=== PATIENT | female | born 1955 | race Caucasian/White ===

== ENCOUNTER → 2018-02-20 10:57 | Outpatient (CLI) | payer BC, SELFPAY ==
--- NOTE | 2018-02-20 | DI.CT.S_ITS ---
PROCEDURE: CT ABDOMEN PELVIS W CON INDICATIONS: RIGHT LOWER ABDOMINAL PAIN FOR SEVERAL MONTHS TECHNIQUE: After the administration of oral and intravenous contrast, 5 mm thick sections acquired from the diaphragms to the symphysis. 5 mm thick coronal and sagittal reformats were performed. For radiation dose reduction, the following was used: automated exposure control, adjustment of mA and/or kV according to patient size. COMPARISON: None. FINDINGS: Image quality: Excellent. ABDOMEN: Lung bases: Lung bases are clear. Heart size is normal. Solid organs: Liver is normal in size and enhancement. Gallbladder is within normal limits. Biliary system is non-dilated. Pancreas enhances normally. Spleen is normal in size and enhancement. No adrenal nodules. Kidneys are normal in size and enhancement, without hydronephrosis. Peritoneum and bowel: Stomach, small bowel, and colon loops are normal in caliber and wall thickness. No free fluid or air. Appendix not seen. No evidence of appendicitis. Nodes and vessels: No retroperitoneal or mesenteric adenopathy. Aorta and inferior vena cava are normal in caliber. Miscellaneous: No ventral hernias. PELVIS: Genitourinary: Bladder wall thickness is normal. Miscellaneous: No inguinal hernias or adenopathy. Bones: No suspicious bony lesions. No vertebral body compression fractures. IMPRESSION: 1. No acute process. 2. Appendix not seen. No evidence of appendicitis. Dictated by: Vahid Lopez M.D. on 02/20/2018 at 13:13 Approved by: Vahid Lopez M.D. on 02/20/2018 at 13:15
== END ==
PROVIDERS: PCP Internal Medicine; Visit Provider Internal Medicine
DX: R10.31 Right lower quadrant pain (principal)
CPT/HCPCS: 74177; Q9967

== ENCOUNTER → 2018-08-14 12:07 | Outpatient (CLI) | payer MEDICARE, OTHER, SELFPAY ==
[2018-08-14 13:54] LABS: BUN Creatinine Ratio 18.2 (6-22); Blood Urea Nitrogen 20 mg/dL (7-17); Estimated Glomerular Filt Rate 49.8 mL/min (>60)
== END ==
PROVIDERS: PCP Internal Medicine; Visit Provider Internal Medicine
DX: R59.1 Generalized enlarged lymph nodes (principal)
CPT/HCPCS: 36415; 82565; 84520

== ENCOUNTER → 2018-08-15 11:40 | Outpatient (CLI) | payer MEDICARE, OTHER, SELFPAY ==
--- NOTE | 2018-08-15 11:46 | DI.CT.S_ITS ---
PROCEDURE: CT SOFT TISSUE NECK W CON INDICATIONS: Generalized enlarged lymph nodes TECHNIQUE: After the administration of intravenous contrast, 3.0 mm axial sections acquired from the sella to the aortic arch. Additional oblique axial 3.0 mm sections acquired through the pharynx. 3 mm thick coronal and sagittal reformats were generated. For radiation dose reduction, the following was used: automated exposure control. COMPARISON: None. FINDINGS: Image quality: Excellent. Lymph nodes: No enlarged lymph nodes seen throughout the neck. Small scattered nodes are seen within the fatty soft tissues of the neck bilaterally, but not centrally necrotic nodes are hyperenhancing nodes are found. Vessels: Visualized vasculature appears patent. Neck spaces: The oropharynx, nasopharynx, and pharynx demonstrate no mucosal lesions. The vocal cords, false vocal cords, pyriform sinuses, epiglottis, vallecula, and tongue base all appear normal. Extramucosal spaces appear unremarkable. Glands: The parotid and submandibular glands appear normal. Thyroid gland appears normal. Miscellaneous: Visualized brain and orbits appear normal. Lung apices appear clear. Superficial soft tissues appear normal. Bones: No suspicious bony lesions. Visualized sinuses and mastoids appear unremarkable. IMPRESSION: The lymph nodes present through the neck do not appear pathologically enlarged. The no hyperenhancing or centrally necrotic lymph nodes are found. No mucosal lesion is identified. By this examination underlying neoplasm would not be suspected. Dictated by: Renny Peralta M.D. on 08/15/2018 at 12:24 Approved by: Renny Peralta M.D. on 08/15/2018 at 12:27
== END ==
PROVIDERS: PCP Internal Medicine; Visit Provider Physician Assistant
DX: R59.1 Generalized enlarged lymph nodes (principal)
CPT/HCPCS: 70491; Q9967

== ENCOUNTER → 2019-02-09 07:08 | Outpatient (CLI) | payer MEDICARE, OTHER, SELFPAY ==
[2019-02-09 08:29] LABS: BUN Creatinine Ratio 17.8 (6-22); Blood Urea Nitrogen 16 mg/dL (7-17); Carbon Dioxide 25 mmol/L (22-32); Chloride 106 mmol/L (98-107); Cholesterol 171 mg/dL (140-199); Estimated Glomerular Filt Rate > 60.0 mL/min (>60); Glucose 91 mg/dL (80-110); HDL Cholesterol 53 mg/dL (40-60); HEMOLYSIS < 15 (0-50); LDL Cholesterol Calculated 104 mg/dL (<100); Sodium 138 mmol/L (137-145); Triglycerides 71 mg/dL (35-150)
== END ==
PROVIDERS: PCP Internal Medicine; Visit Provider Internal Medicine
DX: Z13.220 Encounter for screening for lipoid disorders (principal); Z13.1 Encounter for screening for diabetes mellitus
CPT/HCPCS: 36415; 80048; 80061

== ENCOUNTER → 2019-02-23 14:20 | Outpatient (CLI) | payer MEDICARE, OTHER, SELFPAY ==
--- NOTE | 2019-02-23 | DI.MG.S_ITS ---
BILATERAL DIGITAL SCREENING MAMMOGRAM 3D/2D WITH CAD: 02/23/2019 CLINICAL: Routine screening. Family history of breast cancer. Comparison is made to exams dated: 04/28/2017 mammogram, 03/25/2016 mammogram - [facility], 09/27/2013 mammogram, 08/23/2012 mammogram, and 07/12/2011 mammogram - [facility]. The tissue of both breasts is extremely dense, which lowers the sensitivity of mammography. Current study was also evaluated with a Computer Aided Detection (CAD) system. No significant masses, calcifications, or other findings are seen in either breast. There has been no significant interval change. IMPRESSION: NEGATIVE There is no mammographic evidence of malignancy. A 1 year screening mammogram is recommended. This exam was interpreted at Station ID: [id number]. NOTE: For mammograms, a report in lay terms will be sent to the patient. Approximately 15% of breast malignancies will not be visualized mammographically. In the management of a palpable breast mass, a negative mammogram must not discourage biopsy of a clinically suspicious lesion. Electronically Signed By: Fidencio durbin/matty:02/23/2019 17:43:55 letter sent: Normal Exam ACR BI-RADS Category 1: Negative 3341F
--- NOTE | 2019-02-23 | DI.RAD.S_ITS ---
PROCEDURE: XR HAND RT MIN 3V INDICATIONS: BILATERAL HAND AND WRIST PAIN TECHNIQUE: 3 views of the hand(s) acquired. COMPARISON: None. FINDINGS: Bones: No fractures or dislocations. Carpal bones are normally aligned. No suspicious bony lesions. Mild first CMC joint and triscaphe joint osteoarthritis. Mild interphalangeal joint osteoarthritis. Mild first, second and third metacarpal-phalangeal osteoarthritis. Soft tissues: No suspicious soft tissue calcifications. IMPRESSION: Mild osteoarthritis. Dictated by: Tamara Hernandez MD, PhD on 02/23/2019 at 16:47 Approved by: Tamara Hernandez MD, PhD on 02/23/2019 at 16:48
--- NOTE | 2019-02-23 | DI.RAD.S_ITS ---
PROCEDURE: XR WRIST RT MIN 3V INDICATIONS: BILATERAL HAND AND WRIST PAIN TECHNIQUE: 4 views of the wrist were acquired. COMPARISON: None. FINDINGS: Bones: No fractures or dislocations. No suspicious bony lesions. Mild first CMC joint and triscaphe joint osteoarthritis. Scaphoid view: Scaphoid is intact. Soft tissues: No suspicious soft tissue calcifications. IMPRESSION: Mild osteoarthritis. Dictated by: Tamara Hernandez MD, PhD on 02/23/2019 at 16:49 Approved by: Tamara Hernandez MD, PhD on 02/23/2019 at 16:50
--- NOTE | 2019-02-23 | DI.RAD.S_ITS ---
PROCEDURE: XR WRIST LT MIN 3V INDICATIONS: BILATERAL HAND AND WRIST PAIN TECHNIQUE: 4 views of the wrist were acquired. COMPARISON: None. FINDINGS: Bones: No fractures or dislocations. No suspicious bony lesions. The moderate first CMC and triscaphe joint osteoarthritis. Scaphoid view: Scaphoid is intact. Soft tissues: No suspicious soft tissue calcifications. IMPRESSION: Moderate osteoarthritis. Dictated by: Tamara Hernandez MD, PhD on 02/23/2019 at 16:48 Approved by: Tamara Hernandez MD, PhD on 02/23/2019 at 16:49
--- NOTE | 2019-02-23 | DI.RAD.S_ITS ---
PROCEDURE: XR HAND LT MIN 3V INDICATIONS: BILATERAL HAND AND WRIST PAIN TECHNIQUE: 3 views of the hand(s) acquired. COMPARISON: None. FINDINGS: Bones: No fractures or dislocations. Carpal bones are normally aligned. No suspicious bony lesions. Moderate first CMC joint and triscaphe joint osteoarthritis. Mild interphalangeal and osteophytosis. Soft tissues: No suspicious soft tissue calcifications. IMPRESSION: Osteoarthritis. Dictated by: Tamara Hernandez MD, PhD on 02/23/2019 at 16:46 Approved by: Tamara Hernandez MD, PhD on 02/23/2019 at 16:47
== END ==
PROVIDERS: PCP Internal Medicine; Visit Provider Internal Medicine
DX: Z12.31 Encounter for screening mammogram for malignant neoplasm of breast (principal); Z80.3 Family history of malignant neoplasm of breast; M79.642 Pain in left hand; M79.641 Pain in right hand; M25.532 Pain in left wrist; M25.531 Pain in right wrist; M19.042 Primary osteoarthritis, left hand; M19.041 Primary osteoarthritis, right hand; M18.0 Bilateral primary osteoarthritis of first carpometacarpal joints; M19.032 Primary osteoarthritis, left wrist; M19.031 Primary osteoarthritis, right wrist
CPT/HCPCS: 73110; 73130; 77063; 77067; 77080

== ENCOUNTER → 2020-04-07 08:07 | Outpatient (CLI) | payer MEDICARE, OTHER, SELFPAY ==
[2020-04-07 09:13] LABS: Add Manual Diff / Slide Review NO; Basophils Absolute Auto 100 /uL (0-100); Basophils Percent Auto 2.8 % (0-2); Eosinophils Absolute Auto 300 /uL (0-450); Eosinophils Percent Auto 5.7 % (2-4); Hematocrit 40.3 % (36-46); Hemoglobin 13.5 g/dL (12.0-16.0); Lymphocytes Absolute Auto 2000 /uL (1100-4500); Mean Corpuscular HGB Conc 33.6 % (30-36); Mean Corpuscular Hemoglobin 31.8 PG (26-34); Mean Corpuscular Volume 94.7 fL (80-100); Monocytes Absolute Auto 400 /uL (0-900); Monocytes Percent Auto 8.2 % (3-14); Neutrophils Absolute Auto 1800 /uL (1500-7000); Neutrophils Percent Auto 39.3 % (50-75); Platelet Count 209 X10^3/uL (150-400); Red Blood Cell Count 4.26 X10^6/uL (4.0-5.2); White Blood Cell Count 4.6 X10^3/uL (4.5-11.0)
[2020-04-07 09:31] LABS: Alanine Aminotransferase 25 IU/L (<35); Albumin Globulin Ratio 1.3 (1.0-2.8); Alkaline Phosphatase 53 U/L (38-126); Aspartate Aminotransferase 34 IU/L (14-36); Bilirubin Total 0.6 mg/dL (0.2-1.3); Blood Urea Nitrogen 16 mg/dL (7-17); Calcium 9.3 mg/dL (8.4-10.2); Carbon Dioxide 26 mmol/L (22-32); Chloride 106 mmol/L (98-107); Estimated Glomerular Filt Rate 55.5 mL/min (>60); Globulin 3.2 g/dL (1.7-4.1); Glucose 134 mg/dL (80-110); HEMOLYSIS < 15 (0-50); Potassium 3.9 mmol/L (3.4-5.1); Sodium 135 mmol/L (137-145); Total Protein 7.2 g/dL (6.3-8.2)
== END ==
PROVIDERS: PCP Physician Assistant; Referring Provider Physician Assistant; Visit Provider Physician Assistant
DX: N95.2 Postmenopausal atrophic vaginitis (principal); M81.0 Age-related osteoporosis without current pathological fracture; Z12.31 Encounter for screening mammogram for malignant neoplasm of breast
CPT/HCPCS: 36415; 80053; 85025

== ENCOUNTER → 2020-06-06 14:27 | Outpatient (CLI) | payer MEDICARE, SELFPAY ==
--- NOTE | 2020-06-06 14:31 | DI.MG.S_ITS ---
BILATERAL DIGITAL SCREENING MAMMOGRAM 3D/2D WITH CAD: 06/06/2020 CLINICAL: Routine screening. Family history of breast cancer. Comparison is made to exams dated: 02/23/2019 mammogram, 04/28/2017 mammogram, and 03/25/2016 mammogram - [facility]. The tissue of both breasts is heterogeneously dense. This may lower the sensitivity of mammography. Current study was also evaluated with a Computer Aided Detection (CAD) system. No significant masses, calcifications, or other findings are seen in either breast. There has been no significant interval change. IMPRESSION: NEGATIVE There is no mammographic evidence of malignancy. A 1 year screening mammogram is recommended. This exam was interpreted at Station ID: [id number]. NOTE: For mammograms, a report in lay terms will be sent to the patient. Approximately 15% of breast malignancies will not be visualized mammographically. In the management of a palpable breast mass, a negative mammogram must not discourage biopsy of a clinically suspicious lesion. Electronically Signed By: Ramsey Penny M.D., jr/matty:06/06/2020 15:58:51 letter sent: Normal Exam ACR BI-RADS Category 1: Negative 3341F
== END ==
PROVIDERS: PCP Physician Assistant; Referring Provider Physician Assistant; Visit Provider Physician Assistant
DX: Z12.31 Encounter for screening mammogram for malignant neoplasm of breast (principal); Z80.3 Family history of malignant neoplasm of breast
CPT/HCPCS: 77063; 77067

== ENCOUNTER → 2020-07-18 08:11 | Outpatient (CLI) | payer MEDICARE, SELFPAY ==
[2020-07-18] MEDS: COVID-19 VACC, Ad26(JANSSEN)/PF 0.5 ML IM (08:23)
== END ==
PROVIDERS: PCP Physician Assistant; Visit Provider Internal Medicine
DX: Z23 Encounter for immunization (principal)
CPT/HCPCS: 0031A; 91303

== ENCOUNTER 2020-09-20 17:01 | Emergency (ER) | payer MEDICARE, SELFPAY ==
[2020-09-20 17:05] VITALS: BP 172/81; PULSE 78; RESP 16; TEMP 36.7; O2SAT 99; BMI 20.5
--- NOTE | 2020-09-20 17:07 | DI.RAD.S_ITS ---
PROCEDURE: XR TOE LT MIN 2V INDICATIONS: pain and swelling left big toe, luggage dropped on toe thurs TECHNIQUE: Frontal view of the foot along with 2 dedicated views of the great toe were performed. COMPARISON: None. FINDINGS: Bones: No fractures or dislocations. No suspicious bony lesions. Soft tissues: No suspicious soft tissue densities. IMPRESSION: No acute osseous abnormality. Dictated by: Wayne Dorsey D.O. on 09/20/2020 at 16:27 Approved by: Wayne Dorsey D.O. on 09/20/2020 at 16:28
--- NOTE | 2020-09-20 18:53 | ED_ITS ---
HPI - Extremity Injury (Lower) General Chief Complaint: Extremity Injury, Lower Stated Complaint: Possible Broken Left Big Toe Time Seen by Provider: 09/20/20 17:07 Source: patient Mode of arrival: Ambulatory Limitations: no limitations History of Present Illness HPI Narrative: Patient is a 65-year-old female here for evaluation of an injury that she sustained approximately 24 hours ago to her left great toe. She states that she had a piece of luggage drop on her toe. Since that time she has had quite a bit of discomfort with walking. Related Data Allergies Allergy/AdvReac Type Severity Reaction Status Date / Time No Known Drug Allergies Allergy Verified 09/20/20 17:07 Review of Systems Constitutional Constitutional: Reports system reviewed and no additional complaints, except as documented Musculoskeletal Comments: Left great toe pain Integumentary/Breasts Comments: Bruising around the left great toe Neurologic Neurologic: Denies sensory deficit Hematologic/Lymphatic On Anticoagulants: No Patient History Medical History Healthy adult Social History Smoking Status: Never smoker Smoking Status: Never smoker alcohol intake frequency: 0-2 drinks per day Substance Use Type: does not use Exam Initial Vital Signs Initial Vital Signs: Vital Signs Temperature 98.0 F 09/20/20 17:05 Pulse Rate 78 09/20/20 17:05 Respiratory Rate 16 09/20/20 17:05 Blood Pressure 172/81 H 09/20/20 17:05 Pulse Oximetry 99 09/20/20 17:05 Const General: cooperative Limitations: mental status not altered Resp Effort & Inspection: normal respiratory effort Cardio Pulses: dorsalis pedis present on the left Skin Other: Bruising around the MTP joint to the left great toe. Neuro General: patient alert and patient awake Cognition: normal cognition Speech: speech normal Extrem General: capillary refill normal Psych Appearance: grossly normal and well kempt Procedures Orthopedic Splinting/Casting Injury #1: Side: left Lower Extremity Injury Location: toe Lower Extremity Immobilizer: post-op shoe Post splinting neuro exam: no change Post splinting vascular exam: no change Placed by: Nursing Course Orders Ordered: ED Orders 09/20/20 17:07 XR toe LT min 2V Stat Vital Signs Vital signs: Vital Signs - 8 hr 09/20/20 17:05 09/20/20 19:07 Temperature 98.0 F Pulse Rate 78 65 Respiratory Rate 16 Blood Pressure 172/81 H 165/74 H Pulse Oximetry 99 99 MDM - Extremity Injury (Lower) Imaging Data Extremity x-ray #1: Radiologist's Impression: [address] [id number] ReportSigned Patient: Kayla Centeno AMR#: [id number]: 4Acct:[id number]/Sex: 65 / FDate of Service: 09/20/20Loc: EDAccession Number: [id number] Procedure: XR toe LT min 2V Ordering Provider: Speedy Lyons D.O. PROCEDURE: XR TOE LT MIN 2V INDICATIONS: pain and swelling left big toe, luggage dropped on toe thurs TECHNIQUE: Frontal view of the foot along with 2 dedicated views of the great toe were performed. COMPARISON: None. FINDINGS: Bones: No fractures or dislocations. No suspicious bony lesions. Soft tissues: No suspicious soft tissue densities. IMPRESSION: No acute osseous abnormality. Dictated by: Wayne Dorsey D.O. on 09/20/2020 at 16:27 Approved by: Wayne Dorsey D.O. on 09/20/2020 at 16:28 MDM Narrative Medical decision making narrative: No fractures were noted on the x-rays. She is neurovascularly intact. Will place in a hard sole shoe for her comfort. No further workup needed in the emergency department. She was given return precautions and follow-up instructions. She expressed understanding and agreement. Discharge Plan Departure Patient Disposition: Home Clinical Impression: Contusion of toe of left foot Instructions: DI for Contusion Activity Restrictions/Additional Instructions: There were no fractures noted on the x-rays. The orthopedic shoe is for your comfort. May help with walking however once you start to feel better you can transition back into your regular issues. Recommend 400-600 mg of Motrin/ibuprofen 3 times a day for any discomfort. You can also use ice. Con tact your primary provider for follow-up. Referrals: Elisabeth Calle PA-C [Primary Care Provider] -
[2020-09-20 19:07] VITALS: BP 165/74; PULSE 65; O2SAT 99
== END 2020-09-20 19:08 | disposition home or self-care (01) ==
PROVIDERS: Emergency Provider Emergency Medicine; PCP Physician Assistant
DX: S90.112A Contusion of left great toe without damage to nail, initial encounter (principal); W22.8XXA Striking against or struck by other objects, initial encounter
CPT/HCPCS: 73660; 99283

== ENCOUNTER 2020-11-23 07:57 | Emergency (ER) | payer MEDICARE, SELFPAY ==
--- NOTE | 2020-11-23 08:05 | DI.RAD.S_ITS ---
PROCEDURE: XR SHOULDER RT MIN 2V INDICATIONS: pain with movement after injury TECHNIQUE: 3 views of the shoulder were acquired. COMPARISON: None. FINDINGS: Bones: No fractures or dislocations. No suspicious bony lesions. Visualized ribs appear intact. Soft tissues: There is amorphous soft tissue calcification associated with the supraspinatus tendon IMPRESSION: Supraspinatus tendon calcification may reflect calcific tendinitis. Dictated by: Wil Baldwin M.D. on 11/23/2020 at 7:46 Approved by: Wil Baldwin M.D. on 11/23/2020 at 7:50
[2020-11-23 08:07] VITALS: BP 183/85; PULSE 68; RESP 16; TEMP 36.6; O2SAT 99; BMI 21.4
--- NOTE | 2020-11-23 08:07 | ED.GENADULT ---
HPI - General Adult General Chief complaint: Extremity Injury, Upper Stated complaint: Right shoulder injury Time Seen by Provider: 11/23/20 08:01 Source: patient Mode of arrival: Ambulatory History of Present Illness HPI narrative: 65-year-old female here for evaluation of a right shoulder injury. She states that several days ago she injured her shoulder while throwing a rope while on a boat. Since that time she has had quite a bit of discomfort in his for early been unable to move her shoulder without extreme pain. She has had shoulder problems in the past but this is worse. Was not been evaluated for the symptoms. She did not fall. Related Data Previous Rx's Medication Instructions Recorded hydrocodone 5 mg-acetaminophen 325 1 tab PO Q8H PRN #10 tab 11/23/20 mg tablet Allergies Allergy/AdvReac Type Severity Reaction Status Date / Time No Known Drug Allergies Allergy Verified 09/20/20 17:07 Review of Systems Constitutional Constitutional: Reports system reviewed and no additional complaints, except as documented Cardiovascular Cardiovascular: Reports system reviewed and no additional complaints, except as documented Respiratory Respiratory: Reports system reviewed and no additional complaints, except as documented Gastrointestinal Gastrointestinal: Reports system reviewed and no additional complaints, except as documented Musculoskeletal Musculoskeletal: Reports as per HPI Integumentary/Breasts Skin/Breast: Reports system reviewed and no additional complaints, except as documented Neurologic Neurologic: Reports system reviewed and no additional complaints, except as documented Hematologic/Lymphatic On Anticoagulants: No Patient History Medical History Healthy adult Social History Smoking Status: Never smoker Smoking Status: Never smoker alcohol intake frequency: 0-2 drinks per day Substance Use Type: does not use Exam Initial Vital Signs Initial Vital Signs: Vital Signs Temperature 97.8 F 11/23/20 08:07 Pulse Rate 68 11/23/20 08:07 Respiratory Rate 16 11/23/20 08:07 Blood Pressure 183/85 H 11/23/20 08:07 Pulse Oximetry 99 11/23/20 08:07 Const General: cooperative and comfortable HENMT Head: normal to inspection and normocephalic Resp Effort & Inspection: normal respiratory effort Cardio Pulses: radial pulses present on the right Skin General: no rashes or lesions noted Neuro Sensory Exam: no sensory deficits noted Extrem General: capillary refill normal Other: Her right wrist and right elbow are unremarkable. She does have tenderness to palpation over the AC joint and over the lateral aspect of the right shoulder. She is unable to abduct her shoulder. Can forward flex but is limited secondary to pain. Does not have tenderness over the biceps tendon. Does not have tenderness over the insertion of the deltoid. Minimal posterior shoulder tenderness Course Orders Ordered: ED Orders 11/23/20 08:05 XR shoulder RT min 2V Stat Vital Signs Vital signs: Vital Signs - 8 hr 11/23/20 08:07 Temperature 97.8 F Pulse Rate 68 Respiratory Rate 16 Blood Pressure 183/85 H Pulse Oximetry 99 Medical Decision Making Imaging Data Extremity x-ray #1: Radiologist's Impression: [address] [id number] ReportSigned Patient: Kayla Centeno AMR#: [id number]: 4Acct:[id number]/Sex: 65 / FDate of Service: 11/23/20Loc: EDAccession Number: [id number] Procedure: XR shoulder RT min 2V Ordering Provider: Shadi Plascencia D.O. PROCEDURE: XR SHOULDER RT MIN 2V INDICATIONS: pain with movement after injury TECHNIQUE: 3 views of the shoulder were acquired. COMPARISON: None. FINDINGS: Bones: No fractures or dislocations. No suspicious bony lesions. Visualized ribs appear intact. Soft tissues: There is amorphous soft tissue calcification associated with the supraspinatus tendon IMPRESSION: Supraspinatus tendon calcification may reflect calcific tendinitis. Dictated by: Wil Baldwin M.D. on 11/23/2020 at 7:46 Approved by: Wil Baldwin M.D. on 11/23/2020 at 7:50 [facility] Narrative Additional Information: No fractures or dislocations noted on the x-rays. She does have calcific tendon which very well could be causing her discomfort. We did discuss use of anti-inflammatories and other conservative measures. We will avoid putting her into a sling to avoid a frozen shoulder. She was given return precautions follow-up instructions. She expressed understanding and agreement. Discharge Plan Departure Patient Disposition: Home Clinical Impression: Acute shoulder pain, Calcific tendinitis Instructions: DI for Shoulder Tendinopathy Activity Restrictions/Additional Instructions: I recommend that you continue with an anti-inflammatory. He can also add Tylenol on top of this. You could also use ice. I do recommend that you try to keep your shoulder is mobile as possible. Contact your primary doctor to discuss further evaluation and treatment if necessary. Prescriptions: New hydrocodone-acetaminophen 5-325 mg tablet 1 tab PO Q8H PRN (Reason: pain) Qty: 10 RF: 0 Referrals: Elisabeth Calle PA-C [Primary Care Provider] -
== END 2020-11-23 09:35 | disposition home or self-care (01) ==
PROVIDERS: Emergency Provider Emergency Medicine; PCP Physician Assistant
DX: M25.511 Pain in right shoulder (principal); M75.31 Calcific tendinitis of right shoulder; X50.1XXA Overexertion from prolonged static or awkward postures, initial encounter
CPT/HCPCS: 73030; 99283

== ENCOUNTER → 2021-01-09 12:13 | Outpatient (CLI) | payer MEDICARE, SELFPAY ==
[2021-01-09 12:53] LABS: COVID19 -Nasal RAPID Negative (Negative)
== END ==
PROVIDERS: PCP Physician Assistant; Referring Provider Nurse Practitioner; Visit Provider Nurse Practitioner
DX: R09.89 Other specified symptoms and signs involving the circulatory and respiratory systems (principal); Z20.822 Contact with and (suspected) exposure to COVID-19; R51.9 Headache, unspecified
CPT/HCPCS: 87635

== ENCOUNTER → 2021-03-26 11:09 | Outpatient (CLI) | payer MEDICARE, SELFPAY | PROVIDERS: PCP Physician Assistant; Referring Provider Physician Assistant; Visit Provider Physician Assistant | DX: M81.0 Age-related osteoporosis without current pathological fracture (principal); Z82.62 Family history of osteoporosis; Z78.0 Asymptomatic menopausal state | CPT/HCPCS: 77080 ==

== ENCOUNTER → 2021-08-04 07:56 | Outpatient (CLI) | payer MEDICARE, SELFPAY ==
--- NOTE | 2021-08-04 | DI.MG.S_ITS ---
BILATERAL DIGITAL SCREENING MAMMOGRAM 3D/2D WITH CAD: 08/04/2021 CLINICAL: Routine screening. Comparison is made to exams dated: 06/06/2020 mammogram, 02/23/2019 mammogram, 04/28/2017 mammogram, and 03/25/2016 mammogram - [facility]. The tissue of both breasts is heterogeneously dense. This may lower the sensitivity of mammography. Current study was also evaluated with a Computer Aided Detection (CAD) system. There is an irregular asymmetry in the left breast posterior depth inferior region seen on the mediolateral oblique view only. This is more prominent. No other significant masses, calcifications, or other findings are seen in either breast. IMPRESSION: INCOMPLETE: NEEDS ADDITIONAL IMAGING EVALUATION The irregular asymmetry in the left breast is indeterminate. Additional views with possible ultrasound are recommended. This exam was interpreted at Station ID: [id number]. NOTE: For mammograms, a report in lay terms will be sent to the patient. Approximately 15% of breast malignancies will not be visualized mammographically. In the management of a palpable breast mass, a negative mammogram must not discourage biopsy of a clinically suspicious lesion. Electronically Signed By: Fidencio Clements M.D. slc/:08/04/2021 12:09:35 letter sent: Additional Imaging Needed ACR BI-RADS Category 0: Incomplete 3340F
== END ==
PROVIDERS: PCP Internal Medicine; Referring Provider Internal Medicine; Visit Provider Internal Medicine
DX: Z12.31 Encounter for screening mammogram for malignant neoplasm of breast (principal)
CPT/HCPCS: 77063; 77067

== ENCOUNTER → 2021-09-15 08:42 | Outpatient (CLI) | payer MEDICARE, SELFPAY ==
--- NOTE | 2021-09-15 | DI.US.S_ITS ---
LIMITED ULTRASOUND OF LEFT BREAST: 09/15/2021 CLINICAL: Additional evaluation requested from last mammogram study. Comparison is made to exams dated: 09/15/2021 mammogram and 08/04/2021 mammogram - [facility]. Real-time ultrasound of the left breast 6-9 o'clock region was performed. Cao scale images of the real-time examination were reviewed. No significant abnormalities were seen sonographically in the left breast. Specifically, no finding to correspond to the patient's screening mammography abnormality. IMPRESSION: NEGATIVE There is no sonographic correlate to the patient's left breast abnormality and no evidence of malignancy. Return to annual mammogram screening schedule is recommended. Findings and recommendations were conveyed to the patient at time of exam. This exam was interpreted at Station ID: [id number]. Electronically Signed By: Yasemin murphy/:09/15/2021 15:27:01 letter sent: Normal Exam Ultrasound BI-RADS: 1 Negative
--- NOTE | 2021-09-15 | DI.MG.S_ITS ---
UNILATERAL LEFT DIGITAL DIAGNOSTIC MAMMOGRAM 3D/2D WITH ADDITIONAL VIEWS: 09/15/2021 CLINICAL: Additional evaluation requested from prior study. Comparison is made to exams dated: 08/04/2021 mammogram, 02/23/2019 mammogram, and 06/06/2020 mammogram - [facility]. The tissue of left breast is heterogeneously dense. This may lower the sensitivity of mammography. With focal spot compression, and additional views, the abnormality seen on screening mammography in the left breast in the lower inner quadrant resolves. No significant masses, calcifications, or other findings are seen in the breast. IMPRESSION: INCOMPLETE: NEEDS ADDITIONAL IMAGING EVALUATION Resolution of left breast screening mammography abnormality with additional views. Ultrasound evaluation to confirm resolution is recommended and was performed immediately following this exam. This exam was interpreted at Station ID: [id number]. NOTE: For mammograms, a report in lay terms will be sent to the patient. Approximately 15% of breast malignancies will not be visualized mammographically. In the management of a palpable breast mass, a negative mammogram must not discourage biopsy of a clinically suspicious lesion. Electronically Signed By: Yasemin murphy/:09/15/2021 09:11:57 ACR BI-RADS Category 0: Incomplete 3340F
== END ==
PROVIDERS: PCP Internal Medicine; Referring Provider Internal Medicine; Visit Provider Internal Medicine
DX: R92.8 Other abnormal and inconclusive findings on diagnostic imaging of breast (principal)
CPT/HCPCS: 76642; 77065; G0279

== ENCOUNTER → 2021-12-25 13:07 | Outpatient (CLI) | payer MEDICARE, SELFPAY ==
[2021-12-25 14:34] LABS: Hematocrit 39.4 % (36-46); Hemoglobin 13.6 g/dL (12.0-16.0); Mean Corpuscular HGB Conc 34.5 % (30-36); Mean Corpuscular Volume 92.7 fL (80-100); Platelet Count 224 X10^3/uL (150-400); Red Blood Cell Count 4.25 X10^6/uL (4.0-5.2); Red Cell Distribution Width 12.9 % (11.6-14.8); White Blood Cell Count 6.5 X10^3/uL (4.5-11.0)
[2021-12-25 16:53] LABS: Alanine Aminotransferase 18 IU/L (<35); Albumin 4.1 g/dL (3.5-5.0); Albumin Globulin Ratio 1.4 (1.0-2.8); Alkaline Phosphatase 57 U/L (38-126); Aspartate Aminotransferase 28 IU/L (14-36); BUN Creatinine Ratio 20.2 (6-22); Bilirubin Total 0.3 mg/dL (0.2-1.3); Blood Urea Nitrogen 24 mg/dL (7-17); Calcium 8.8 mg/dL (8.4-10.2); Carbon Dioxide 23 mmol/L (22-32); Chloride 105 mmol/L (98-107); Cholesterol 213 mg/dL (140-199); Estimated Glomerular Filt Rate 50 mL/min (>60); Globulin 2.9 g/dL (1.7-4.1); Glucose 79 mg/dL (80-110); HDL Cholesterol 76 mg/dL (40-60); HEMOLYSIS < 15 (0-50); LDL Cholesterol Calculated 123 mg/dL (<100); Potassium 4.4 mmol/L (3.4-5.1); Sodium 139 mmol/L (137-145); Triglycerides 71 mg/dL (35-150)
[2021-12-25 17:22] LABS: TSH w/ Reflex to FT4 0.94 uIU/mL (0.47-4.68)
== END ==
PROVIDERS: PCP Internal Medicine; Referring Provider Internal Medicine; Visit Provider Internal Medicine
DX: E78.2 Mixed hyperlipidemia (principal); M81.0 Age-related osteoporosis without current pathological fracture; M19.91 Primary osteoarthritis, unspecified site
CPT/HCPCS: 36415; 80053; 80061; 82306; 84443; 85027

== ENCOUNTER → 2022-04-08 09:04 | Outpatient (CLI) | payer MEDICARE, SELFPAY | PROVIDERS: PCP Internal Medicine; Visit Provider Internal Medicine | DX: N39.0 Urinary tract infection, site not specified (principal) | CPT/HCPCS: 87086 ==

== ENCOUNTER → 2022-04-21 09:12 | Outpatient (CLI) | payer MEDICARE, SELFPAY ==
--- NOTE | 2022-04-21 09:12 | DI.US.S_ITS ---
P no ROCEDURE: US PELVIC COMPLETE INDICATIONS: RIGHT PELVIC PAIN TECHNIQUE: Real-time scanning was performed of the pelvic organs, with image documentation. Additional endovaginal scanning was necessary due to incomplete visualization of the adnexal and endometrial structures by transabdominal scanning. COMPARISON: None. FINDINGS: Uterus: Uterus is anteverted and normal in size at 7.1 x 4.2 x 2.6 cm. The myometrium is heterogeneous. The endometrium measures 2.3 mm combined thickness. There is trace fluid in the endometrium Endometrial cavity. Ovaries: The ovaries are not visualized. Other: No pathologic free abdominal or pelvic fluid. IMPRESSION: Endometrium within normal limits for thickness. Ovaries not visualized. If further characterization of the ovaries is warranted, gynecologic protocol MRI could be used. We strive to produce accurate, complete, and clear reports of imaging services. To assist us in improving patient care, this report was composed using standard report templates and voice recognition software. Therefore, it may contain abnormal punctuation, insertions and/or omissions. Occasional wrong-word or sound-alike substitutions may occur. Though we review the report and make efforts to correct it, we do recommend that the report be read carefully in proper context to recognize any text inaccuracies. Dictated by: Kyra Prado M.D. on 04/21/2022 at 13:42 Approved by: Kyra Prado M.D. on 04/21/2022 at 13:43
== END ==
PROVIDERS: PCP Internal Medicine; Referring Provider Internal Medicine; Visit Provider Internal Medicine
DX: R10.2 Pelvic and perineal pain (principal)
CPT/HCPCS: 76856

== ENCOUNTER → 2022-10-06 12:17 | Outpatient (CLI) | payer MEDICARE, SELFPAY ==
--- NOTE | 2022-10-06 12:20 | DI.CT.S_ITS ---
PROCEDURE: CT HEAD/BRAIN WO CON INDICATIONS: headache TECHNIQUE: Noncontrast 4.5 mm thick angled axial sections acquired from the foramen magnum to the vertex, with coronal and sagittal reformats. For radiation dose reduction, the following was used: automated exposure control, adjustment of mA and/or kV according to patient size. COMPARISON: None. FINDINGS: Image quality: Excellent. CSF spaces: Basal cisterns are patent. No extra-axial fluid collections. Ventricles are normal in size and shape. Brain: No midline shift. No intracranial masses or hemorrhage. Cao-white matter interface is normal. Skull and face: Calvarium and visualized facial bones are intact, without suspicious lesions. Sinuses: Visualized sinuses and mastoids are clear. IMPRESSION: Unremarkable CT of the brain Approved by: Wil Baldwin M.D. on 10/07/2022 at 13:58
== END ==
PROVIDERS: PCP Internal Medicine; Referring Provider Internal Medicine; Visit Provider Internal Medicine
DX: G43.109 Migraine with aura, not intractable, without status migrainosus (principal)
CPT/HCPCS: 70450

== ENCOUNTER → 2022-12-27 11:02 | Outpatient (CLI) | payer MEDICARE, SELFPAY ==
[2022-12-27 12:41] LABS: Aspartate Aminotransferase 32 IU/L (14-36); BUN Creatinine Ratio 20.2 (6-22); Blood Urea Nitrogen 19 mg/dL (7-17); Calcium 9.5 mg/dL (8.4-10.2); Carbon Dioxide 24 mmol/L (22-32); Chloride 107 mmol/L (98-107); Cholesterol 241 mg/dL (140-199); Estimated Glomerular Filt Rate > 60 mL/min (>60); Glucose 81 mg/dL (80-110); HDL Cholesterol 83 mg/dL (40-60); HEMOLYSIS < 15 (0-50); LDL Cholesterol Calculated 139 mg/dL (<100); Potassium 4.8 mmol/L (3.4-5.1); Sodium 137 mmol/L (137-145); Triglycerides 96 mg/dL (35-150)
== END ==
PROVIDERS: PCP Internal Medicine; Referring Provider Internal Medicine; Visit Provider Internal Medicine
DX: E78.2 Mixed hyperlipidemia (principal); M81.0 Age-related osteoporosis without current pathological fracture
CPT/HCPCS: 36415; 80048; 80061; 84450

== ENCOUNTER 2023-02-24 23:46 | Emergency (ER) | payer MEDICARE, SELFPAY ==
[2023-02-24 23:49] VITALS: BP 178/77; PULSE 56; RESP 18; TEMP 36.5; O2SAT 99; BMI 21.8
--- NOTE | 2023-02-24 23:50 | ED_ITS ---
HPI - General Adult <Speedy Lyons DO - Last Filed: 03/01/23 01:32> General Chief complaint: Chest Pain Stated complaint: chest pain Time Seen by Provider: 02/24/23 23:50 History of Present Illness HPI narrative: 67-year-old female nonsmoker with a history of hyperlipidemia presents for evaluation of chest pain that initially started at about 8:00 p.m. tonight. It starts under her left breast and went into her left arm that subsided After about 20-30 minutes without any obvious treatment but returned again at about 10 50 when she was starting to go to sleep. She denies any shortness of breath. She denies nausea, vomiting or diarrhea. she denies any recent exertional symptoms but does state that she is been relatively fatigued for least the past few days. She does have a strong family history of cardiac disease in her mother had a triple bypass in her mid 40s and in her early 60s. Patient had a stress test about 20 or 30 years ago but no subsequent workups. She did travel to and from [facility] relatively recently but denies any history of blood clot or lower extremity pain, swelling or redness. She states that the pain is a 3 or a 4/10 in seems to be squeezing in nature Related Data Home Medications Medication Instructions Recorded Confirmed multivitamin 1 tab PO DAILY 08/31/21 12/27/22 Previous Rx's Medication Instructions Recorded estradiol 0.01% (0.1 mg/gram) 1 g vaginal 2XW #42.5 grams 04/08/22 vaginal cream rosuvastatin 10 mg tablet 10 mg PO DAILY #90 tabs 12/27/22 Allergies Allergy/AdvReac Type Severity Reaction Status Date / Time No Known Drug Allergies Allergy Verified 02/24/23 23:53 Review of Systems <Speedy Lyons DO - Last Filed: 03/01/23 01:32> Review of Systems Narrative: GENERAL: Denies chills, fatigue, malaise, fever, sweats. HEENT: Denies sinus pain, ear pain, sore throat, difficulty swallowing, dizziness. RESPIRATORY: Denies dyspnea, cough, wheezing, hemoptysis, sputum. CARDIOVASCULAR: see HPI GASTROINTESTINAL: Denies nausea, vomiting, abdominal pain, diarrhea, constipation, melena. : Denies dysuria, frequency, incontinence, hematuria, urinary retention. MUSCULOSKELETAL: denies weakness, joint pain, or bony pain SKIN: Denies rash, skin lesions, or other NEUROLOGIC: Denies weakness, headache, numbness, change in speech, confusion, seizures, incoordination. PSYCHIATRIC: No concerning psychosocial issues. 12 point review of systems is negative except for those stated above Patient History <Speedy Lyons DO - Last Filed: 03/01/23 01:32> Medical History (Updated 02/25/23 @ 09:38 by Ana Mcbride DO) Migraine with aura, not intractable Cervicalgia Pelvic pain Menopausal syndrome Mixed hyperlipidemia Chronic right-sided low back pain without sciatica Tendonitis of left rotator cuff Right rotator cuff tendonitis Acne Osteoarthritis (~2009) Migraines Osteoporosis (~1999) Mumps Chicken pox Painful menstrual periods (~2001) Ovarian cyst (~2001) Healthy adult Surgical History Anesthesia S/P ACL surgery (~07/2007) History of appendectomy (~12/1986) History of section Family History Father Accident Mother History of heart disease Brother Mental health problem Sister History of heart disease Overweight Grandfather Cancer Grandmother Fall Social History marital status: details: James Jones, cousin David Conner, 3 children, [employer]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 number of children: 3 Smoking Status: Never smoker Smoking Status: Never smoker alcohol intake frequency: 0-2 drinks per day Substance Use Type: does not use Exam <Speedy Lyons DO - Last Filed: 03/01/23 01:32> Narrative Exam Narrative: GENERAL: [67] year old patient appears stated age. Well-developed patient, in mild distress. HEAD: Atraumatic. Normocephalic. EYES: Pupils equal round and reactive. Extraocular motions intact. No scleral icterus. No injection or drainage. ENT: Nose without bleeding, purulent drainage. Throat without erythema, tonsillar hypertrophy or exudate. Airway patent. NECK: Trachea midline. Non tender CARDIOVASCULAR: Regular rate and rhythm without murmurs, gallops, or rubs. RESPIRATORY: Clear to auscultation. Breath sounds equal bilaterally. No wheezes, rales, or rhonchi. GASTROINTESTINAL: Abdomen soft, non-tender, nondistended. EXTREMITIES: No edema or joint tenderness. BACK: Nontender without deformity or crepitance. No flank tenderness. NEURO: AOx3. SKIN: No rash or erythema of visible areas Initial Vital Signs Initial Vital Signs: Vital Signs Temperature 97.7 F 02/24/23 23:49 Pulse Rate 56 L 02/24/23 23:49 Respiratory Rate 18 02/24/23 23:49 Blood Pressure 178/77 H 02/24/23 23:49 Pulse Oximetry 99 02/24/23 23:49 Oxygen Delivery Method Room Air 02/24/23 23:49 <Ana Mcbride DO - Last Filed: 02/25/23 12:18> Initial Vital Signs Initial Vital Signs: Vital Signs Temperature 97.7 F 02/24/23 23:49 Pulse Rate 56 L 02/24/23 23:49 Respiratory Rate 18 02/24/23 23:49 Blood Pressure 178/77 H 02/24/23 23:49 Pulse Oximetry 99 02/24/23 23:49 Oxygen Delivery Method Room Air 02/24/23 23:49 Scores <Speedy Lyons DO - Last Filed: 03/01/23 01:32> HEART Score Heart Score history: Moderately Suspicious Heart Score EKG: Non-Specific repolarization disturbance Heart Score Age: > or = 65 years old Heart Score risk factors: 1-2 risk factors Heart Score troponin: < or = to normal limit Heart Score Total: 5 <Ana Mcbride DO - Last Filed: 02/25/23 12:18> HEART Score Heart Score Total: 5 Course <Speedy Lyons DO - Last Filed: 03/01/23 01:32> Orders Ordered: Discontinued Medications Aspirin (Aspirin 81 Mg Chew Tab) 324 mg PO NOW ONE Stop: 02/24/23 23:55 Last Admin: 02/25/23 00:14 Dose: 324 mg Documented By: DARLIN Nitroglycerin (Nitroglycerin 0.4 Mg Sl Tab) 0.4 mg SL [id number] PRN PRN Reason: Chest Pain Last Admin: 02/25/23 01:01 Dose: 0.4 mg Documented By: MARIA T Admin: 02/25/23 00:50 Dose: 0.4 mg Documented By: MARIA T Ondansetron HCl (Ondansetron 4 Mg/2 Ml Inj) 4 mg IV NOW ONE Stop: 02/25/23 01:18 Last Admin: 02/25/23 01:21 Dose: Not Given Documented By: Reevaluation(s) Reevaluation #1: pain resolved after 2nd nitro, she did get briefly hypotensive in the low 100s and dizzy after 2nd nitro, but this quickly resolved and she has remained pain free Vital Signs Vital signs: Vital Signs - 8 hr 02/25/23 04:20 02/25/23 04:20 02/25/23 04:30 Pulse Rate 51 L 55 L Respiratory Rate 13 13 Blood Pressure 99/58 L Pulse Oximetry 98 98 Oxygen Delivery Method Room Air Room Air 02/25/23 04:30 02/25/23 04:40 02/25/23 04:40 Pulse Rate 52 L Respiratory Rate 14 Blood Pressure 107/59 L 100/54 L Pulse Oximetry 97 Oxygen Delivery Method Room Air 02/25/23 04:50 02/25/23 04:50 02/25/23 05:00 Pulse Rate 50 L 51 L Respiratory Rate 22 17 Blood Pressure 98/52 L Pulse Oximetry 98 97 Oxygen Delivery Method Room Air Room Air 02/25/23 05:00 02/25/23 05:10 02/25/23 05:10 Pulse Rate 52 L Respiratory Rate 13 Blood Pressure 94/46 L 110/58 L Pulse Oximetry 98 Oxygen Delivery Method Room Air 02/25/23 05:20 02/25/23 05:20 02/25/23 05:30 Pulse Rate 53 L 55 L Respiratory Rate 13 Blood Pressure 110/57 L Pulse Oximetry 98 99 Oxygen Delivery Method Room Air Room Air 02/25/23 05:30 02/25/23 05:40 02/25/23 05:40 Pulse Rate 63 Respiratory Rate 16 Blood Pressure 117/57 L 121/59 L Pulse Oximetry 99 Oxygen Delivery Method Room Air 02/25/23 05:50 02/25/23 05:50 02/25/23 06:00 Pulse Rate 55 L 57 L Respiratory Rate 13 13 Blood Pressure 129/61 Pulse Oximetry 98 99 Oxygen Delivery Method Room Air 02/25/23 06:01 02/25/23 06:01 02/25/23 06:11 Pulse Rate 53 L Respiratory Rate Blood Pressure 123/61 103/53 L Pulse Oximetry 98 Oxygen Delivery Method Room Air 02/25/23 06:11 02/25/23 06:20 02/25/23 06:20 Pulse Rate 51 L 49 L Respiratory Rate 14 13 Blood Pressure 98/53 L Pulse Oximetry 97 99 Oxygen Delivery Method Room Air Room Air 02/25/23 06:30 02/25/23 06:30 02/25/23 06:46 Pulse Rate 53 L 60 Respiratory Rate 13 15 Blood Pressure 104/51 L Pulse Oximetry 98 100 Oxygen Delivery Method 02/25/23 06:46 02/25/23 06:51 02/25/23 06:51 Pulse Rate 51 L Respiratory Rate 14 Blood Pressure 136/63 115/60 Pulse Oximetry 98 Oxygen Delivery Method 02/25/23 07:00 02/25/23 07:00 02/25/23 07:10 Pulse Rate 52 L Respiratory Rate 13 Blood Pressure 122/68 105/53 L Pulse Oximetry 98 Oxygen Delivery Method 02/25/23 07:10 02/25/23 07:20 02/25/23 07:20 Pulse Rate 52 L 53 L Respiratory Rate 14 14 Blood Pressure 106/53 L Pulse Oximetry 98 98 Oxygen Delivery Method 02/25/23 07:30 02/25/23 07:30 02/25/23 07:40 Pulse Rate 57 L 56 L Respiratory Rate 16 22 Blood Pressure 122/60 Pulse Oximetry 99 99 Oxygen Delivery Method 02/25/23 07:40 02/25/23 07:50 02/25/23 07:50 Pulse Rate 53 L Respiratory Rate 18 Blood Pressure 119/60 121/60 Pulse Oximetry 98 Oxygen Delivery Method 02/25/23 08:00 02/25/23 08:00 02/25/23 08:10 Pulse Rate 55 L 57 L Respiratory Rate 20 20 Blood Pressure 137/65 Pulse Oximetry 100 99 Oxygen Delivery Method 02/25/23 08:10 02/25/23 08:20 02/25/23 08:20 Pulse Rate 58 L Respiratory Rate 20 Blood Pressure 132/60 116/55 L Pulse Oximetry 99 Oxygen Delivery Method 02/25/23 08:30 02/25/23 08:30 02/25/23 08:40 Pulse Rate 64 Respiratory Rate 20 Blood Pressure 113/57 L 112/59 L Pulse Oximetry 99 Oxygen Delivery Method 02/25/23 08:40 02/25/23 08:50 02/25/23 08:50 Pulse Rate 66 59 L Respiratory Rate 22 22 Blood Pressure 102/58 L Pulse Oximetry 99 100 Oxygen Delivery Method 02/25/23 09:00 02/25/23 09:00 02/25/23 09:10 Pulse Rate 58 L Respiratory Rate 22 Blood Pressure 111/57 L 105/54 L Pulse Oximetry 100 Oxygen Delivery Method 02/25/23 09:10 02/25/23 09:20 02/25/23 09:20 Pulse Rate 60 59 L Respiratory Rate 22 20 22 Blood Pressure 97/56 L Pulse Oximetry 99 98 Oxygen Delivery Method 02/25/23 09:23 02/25/23 09:23 02/25/23 09:30 Pulse Rate 58 L 63 Respiratory Rate 22 22 Blood Pressure 105/59 L Pulse Oximetry 98 99 Oxygen Delivery Method 02/25/23 09:30 02/25/23 09:40 02/25/23 09:40 Pulse Rate 60 Respiratory Rate 22 Blood Pressure 105/66 110/64 Pulse Oximetry 98 Oxygen Delivery Method <Ana Mcbride, - Last Filed: 02/25/23 12:18> Orders Ordered: Discontinued Medications Aspirin (Aspirin 81 Mg Chew Tab) 324 mg PO NOW ONE Stop: 02/24/23 23:55 Last Admin: 02/25/23 00:14 Dose: 324 mg Documented By: DARLIN Nitroglycerin (Nitroglycerin 0.4 Mg Sl Tab) 0.4 mg SL [id number] PRN PRN Reason: Chest Pain Last Admin: 02/25/23 01:01 Dose: 0.4 mg Documented By: MARIA T Admin: 02/25/23 00:50 Dose: 0.4 mg Documented By: MARIA T Ondansetron HCl (Ondansetron 4 Mg/2 Ml Inj) 4 mg IV NOW ONE Stop: 02/25/23 01:18 Last Admin: 02/25/23 01:21 Dose: Not Given Documented By: Vital Signs Vital signs: Vital Signs - 8 hr 02/25/23 04:20 02/25/23 04:20 02/25/23 04:30 Pulse Rate 51 L 55 L Respiratory Rate 13 13 Blood Pressure 99/58 L Pulse Oximetry 98 98 Oxygen Delivery Method Room Air Room Air 02/25/23 04:30 02/25/23 04:40 02/25/23 04:40 Pulse Rate 52 L Respiratory Rate 14 Blood Pressure 107/59 L 100/54 L Pulse Oximetry 97 Oxygen Delivery Method Room Air 02/25/23 04:50 02/25/23 04:50 02/25/23 05:00 Pulse Rate 50 L 51 L Respiratory Rate 22 17 Blood Pressure 98/52 L Pulse Oximetry 98 97 Oxygen Delivery Method Room Air Room Air 02/25/23 05:00 02/25/23 05:10 02/25/23 05:10 Pulse Rate 52 L Respiratory Rate 13 Blood Pressure 94/46 L 110/58 L Pulse Oximetry 98 Oxygen Delivery Method Room Air 02/25/23 05:20 02/25/23 05:20 02/25/23 05:30 Pulse Rate 53 L 55 L Respiratory Rate 13 Blood Pressure 110/57 L Pulse Oximetry 98 99 Oxygen Delivery Method Room Air Room Air 02/25/23 05:30 02/25/23 05:40 02/25/23 05:40 Pulse Rate 63 Respiratory Rate 16 Blood Pressure 117/57 L 121/59 L Pulse Oximetry 99 Oxygen Delivery Method Room Air 02/25/23 05:50 02/25/23 05:50 02/25/23 06:00 Pulse Rate 55 L 57 L Respiratory Rate 13 13 Blood Pressure 129/61 Pulse Oximetry 98 99 Oxygen Delivery Method Room Air 02/25/23 06:01 02/25/23 06:01 02/25/23 06:11 Pulse Rate 53 L Respiratory Rate Blood Pressure 123/61 103/53 L Pulse Oximetry 98 Oxygen Delivery Method Room Air 02/25/23 06:11 02/25/23 06:20 02/25/23 06:20 Pulse Rate 51 L 49 L Respiratory Rate 14 13 Blood Pressure 98/53 L Pulse Oximetry 97 99 Oxygen Delivery Method Room Air Room Air 02/25/23 06:30 02/25/23 06:30 02/25/23 06:46 Pulse Rate 53 L 60 Respiratory Rate 13 15 Blood Pressure 104/51 L Pulse Oximetry 98 100 Oxygen Delivery Method 02/25/23 06:46 02/25/23 06:51 02/25/23 06:51 Pulse Rate 51 L Respiratory Rate 14 Blood Pressure 136/63 115/60 Pulse Oximetry 98 Oxygen Delivery Method 02/25/23 07:00 02/25/23 07:00 02/25/23 07:10 Pulse Rate 52 L Respiratory Rate 13 Blood Pressure 122/68 105/53 L Pulse Oximetry 98 Oxygen Delivery Method 02/25/23 07:10 02/25/23 07:20 02/25/23 07:20 Pulse Rate 52 L 53 L Respiratory Rate 14 14 Blood Pressure 106/53 L Pulse Oximetry 98 98 Oxygen Delivery Method 02/25/23 07:30 02/25/23 07:30 02/25/23 07:40 Pulse Rate 57 L 56 L Respiratory Rate 16 22 Blood Pressure 122/60 Pulse Oximetry 99 99 Oxygen Delivery Method 02/25/23 07:40 02/25/23 07:50 02/25/23 07:50 Pulse Rate 53 L Respiratory Rate 18 Blood Pressure 119/60 121/60 Pulse Oximetry 98 Oxygen Delivery Method 02/25/23 08:00 02/25/23 08:00 02/25/23 08:10 Pulse Rate 55 L 57 L Respiratory Rate 20 20 Blood Pressure 137/65 Pulse Oximetry 100 99 Oxygen Delivery Method 02/25/23 08:10 02/25/23 08:20 02/25/23 08:20 Pulse Rate 58 L Respiratory Rate 20 Blood Pressure 132/60 116/55 L Pulse Oximetry 99 Oxygen Delivery Method 02/25/23 08:30 02/25/23 08:30 02/25/23 08:40 Pulse Rate 64 Respiratory Rate 20 Blood Pressure 113/57 L 112/59 L Pulse Oximetry 99 Oxygen Delivery Method 02/25/23 08:40 02/25/23 08:50 02/25/23 08:50 Pulse Rate 66 59 L Respiratory Rate 22 22 Blood Pressure 102/58 L Pulse Oximetry 99 100 Oxygen Delivery Method 02/25/23 09:00 02/25/23 09:00 02/25/23 09:10 Pulse Rate 58 L Respiratory Rate 22 Blood Pressure 111/57 L 105/54 L Pulse Oximetry 100 Oxygen Delivery Method 02/25/23 09:10 02/25/23 09:20 02/25/23 09:20 Pulse Rate 60 59 L Respiratory Rate 22 20 22 Blood Pressure 97/56 L Pulse Oximetry 99 98 Oxygen Delivery Method 02/25/23 09:23 02/25/23 09:23 02/25/23 09:30 Pulse Rate 58 L 63 Respiratory Rate 22 22 Blood Pressure 105/59 L Pulse Oximetry 98 99 Oxygen Delivery Method 02/25/23 09:30 02/25/23 09:40 02/25/23 09:40 Pulse Rate 60 Respiratory Rate 22 Blood Pressure 105/66 110/64 Pulse Oximetry 98 Oxygen Delivery Method Medical Decision Making <Speedy Eloy, DO - Last Filed: 03/01/23 01:32> Lab Data 02/25/23 00:05 02/25/23 00:05 Labs: Lab Results 02/25/23 02/25/23 Range/Units 00:05 03:15 WBC 8.4 (4.5-11.0) X10^3/uL RBC 4.28 (4.0-5.2) X10^6/uL Hgb 13.7 (12.0-16.0) g/dL Hct 39.2 (36-46) % MCV 91.6 (80-100) fL MCH 32.1 (26-34) PG MCHC 35.0 (30-36) % RDW 12.8 (11.6-14.8) % Plt Count 215 (150-400) X10^3/uL Neut % (Auto) 44.0 L (50-75) % Lymph % (Auto) 40.8 H (25-40) % [place] % (Auto) 8.7 (3-14) % Eos % (Auto) 6.2 H (2-4) % Baso % (Auto) 0.3 (0-2) % Neut # (Auto) 3700 (4643-0010) /uL Lymph # (Auto) 3400 (8457-6793) /uL [place] # (Auto) 700 (0-900) /uL Eos # (Auto) 500 H (0-450) /uL Baso # (Auto) 0 (0-100) /uL PT 11.0 (10.1-12.7) SECONDS INR 1.0 (0.9-1.3) APTT 30 (26-36) SECONDS D-Dimer 455 (<500) ng/ml Sodium 136 L (137-145) mmol/L Potassium 4.1 (3.4-5.1) mmol/L Chloride 105 (98-107) mmol/L Carbon Dioxide 21 L (22-32) mmol/L BUN 23 H (7-17) mg/dL Creatinine 0.85 (0.52-1.04) mg/dL Estimated GFR > 60 (>60) mL/min BUN/Creatinine Ratio 27.1 H (6-22) Glucose 92 (80-110) mg/dL Calcium 9.6 (8.4-10.2) mg/dL Magnesium 1.9 (1.6-2.3) mg/dL Total Bilirubin 0.2 (0.2-1.3) mg/dL AST 32 (14-36) IU/L ALT 26 (<35) IU/L Alkaline Phosphatase 59 (38-126) U/L Total Creatine Kinase 72 52 (30-135) U/L Troponin I < 0.012 < 0.012 (0.01-0.034) ng/mL Total Protein 7.8 (6.3-8.2) g/dL Albumin 4.3 (3.5-5.0) g/dL Globulin 3.5 (1.7-4.1) g/dL Albumin/Globulin Ratio 1.2 (1.0-2.8) Lipase 273 (23-300) U/L ECG Data Interpretation: 0004 EKG is normal sinus rhythm rate [57] and free of any signs of ischemia or ectopy. No ST segmental elevation or depression. No T wave inversions. Interventricular conduction delay MDM Narrative Medical decision making narrative: [67] year old patient presents with Chest pressure and radiation to left arm Multiple etiologies for patient's symptoms considered including, but not limited to: [ cardiac ischemia versus other] Prior Charts reviewed in our EMR Primary Historian: patient Labs reviewed and interpreted by myself: no leukocytosis or left shift, no signs of anemia, primary electrolytes and renal function within normal limits and troponin x2 negative Treatments: ASA 324mg, NG 0.4mg SL x2 patient pain free HEART Score 5 Patient with chest pain and high risk HEART score needs admission for further workup including echo and stress test. It is unclear if there are available stress test slots available at our facility at this time, but after speaking with printer floor covering assistant there is only 1 known stress test, patient will remain in the emergency department until we can confirm the availability of a stress test at our facility. If at that time there are no available slots here the patient will need to be transferred <Ana Mcbride DO - Last Filed: 02/25/23 12:18> Lab Data Labs: Lab Results 02/25/23 02/25/23 Range/Units 00:05 03:15 WBC 8.4 (4.5-11.0) X10^3/uL RBC 4.28 (4.0-5.2) X10^6/uL Hgb 13.7 (12.0-16.0) g/dL Hct 39.2 (36-46) % MCV 91.6 (80-100) fL MCH 32.1 (26-34) PG MCHC 35.0 (30-36) % RDW 12.8 (11.6-14.8) % Plt Count 215 (150-400) X10^3/uL Neut % (Auto) 44.0 L (50-75) % Lymph % (Auto) 40.8 H (25-40) % [place] % (Auto) 8.7 (3-14) % Eos % (Auto) 6.2 H (2-4) % Baso % (Auto) 0.3 (0-2) % Neut # (Auto) 3700 (1174-4379) /uL Lymph # (Auto) 3400 (1160-9120) /uL [place] # (Auto) 700 (0-900) /uL Eos # (Auto) 500 H (0-450) /uL Baso # (Auto) 0 (0-100) /uL PT 11.0 (10.1-12.7) SECONDS INR 1.0 (0.9-1.3) APTT 30 (26-36) SECONDS D-Dimer 455 (<500) ng/ml Sodium 136 L (137-145) mmol/L Potassium 4.1 (3.4-5.1) mmol/L Chloride 105 (98-107) mmol/L Carbon Dioxide 21 L (22-32) mmol/L BUN 23 H (7-17) mg/dL Creatinine 0.85 (0.52-1.04) mg/dL Estimated GFR > 60 (>60) mL/min BUN/Creatinine Ratio 27.1 H (6-22) Glucose 92 (80-110) mg/dL Calcium 9.6 (8.4-10.2) mg/dL Magnesium 1.9 (1.6-2.3) mg/dL Total Bilirubin 0.2 (0.2-1.3) mg/dL AST 32 (14-36) IU/L ALT 26 (<35) IU/L Alkaline Phosphatase 59 (38-126) U/L Total Creatine Kinase 72 52 (30-135) U/L Troponin I < 0.012 < 0.012 (0.01-0.034) ng/mL Total Protein 7.8 (6.3-8.2) g/dL Albumin 4.3 (3.5-5.0) g/dL Globulin 3.5 (1.7-4.1) g/dL Albumin/Globulin Ratio 1.2 (1.0-2.8) Lipase 273 (23-300) U/L Imaging Data Chest x-ray: Radiologist's Impression: PROCEDURE: XR CHEST 1V INDICATIONS: chest pain TECHNIQUE: One view of the chest was acquired. COMPARISON: None. FINDINGS: Surgical changes and devices: None. Lungs and pleura: Lungs are clear. No pleural effusions or pneumothorax. Mediastinum: Mediastinal contours appear normal. Heart size is normal. Bones and chest wall: No suspicious bony lesions. Overlying soft tissues appear unremarkable. IMPRESSION: No acute cardiopulmonary abnormality. Dictated by: Ricky Clark M.D. on 02/25/2023 at 2:00 echo: Radiologist's Impression: Name: IRINA SOLIMAN Study Date: 02/25/2023 Height: 64 in : :[facility] ReadingLocation: Weight: 127 lb : : Gender: Female BSA: 1.6 m2 : :: 1955 Age: 67 yrs BP: 122/68 mmHg: :Reason For Study: Chest Pain : :Ordering Physician: RAE, : :ANA Performed By: Mayela Pickett : :Referring: ANA MCBRIDE : + + Interpretation Summary The ejection fraction is estimated to be 60-65%. Diastolic parameters suggest probable normal left ventricular diastolic function and normal filling pressures. The right ventricle is normal in size and function. The right ventricular systolic pressure is estimated to be at least 23 mmHg based on an estimated right atrial pressure of 3 mm Hg. No significant valvular abnormality. Procedure: A two-dimensional transthoracic echocardiogram with color flow and Doppler was performed. The study quality was technically adequate. There is no prior echocardiogram noted for this patient. The patient was in a bradycardic rhythm during the exam. Left Ventricle: The left ventricle is normal in size. The ejection fraction is estimated to be 60-65%. Diastolic parameters suggest probable normal left ventricular diastolic function and normal filling pressures. Right Ventricle: The right ventricle is normal in size and function. Atria: The left atrial size is normal. Right atrial size is normal. There is no Doppler evidence for an interatrial shunt. Mitral Valve: The mitral valve is normal. There is no mitral valve stenosis. There is trace mitral regurgitation. Aortic Valve: The aortic valve is trileaflet. There is mild aortic valve sclerosis. There is no aortic valve stenosis. No aortic regurgitation is present. Tricuspid Valve: The tricuspid valve is normal. There is no tricuspid stenosis. There is trace tricuspid regurgitation. The right ventricular systolic pressure is estimated to be at least 23 mmHg based on an estimated right atrial pressure of 3 mm Hg. Pulmonic Valve: The pulmonic valve is not well visualized. There is no pulmonic valvular stenosis. There is trace pulmonic regurgitation. Great Vessels: The aortic root is normal size. The ascending aorta is normal in size. The pulmonary artery is normal size. The IVC is of normal diameter and collapses greater than 50% with a sniff. This suggests a low right atrial pressure of 3 mm Hg. Pericardium/ Pleura There is no pericardial effusion. There is no pleural effusion. MMode/2D Measurements & Calculations LVIDd: 3.9 cm LVOT diam: 1.7 cm LVIDs: 2.5 cm Ao root diam: 2.5 cm FS: 35.9 % asc Aorta Diam: 3.3 cm IVSd: 1.1 cm LVPWd: 1.0 cm LV wallis. diameter/BSA (cm/m^2): 2.4 LV sys. diameter/BSA (cm/m^2): 1.6 LA A2 area: 15.3 cm2 RA long axis: 4.4 cm LA A4 area: 13.3 cm2 RA area: 13.1 cm2 LA length (vol): 5.0 cm RA vol: 33.1 ml LA vol: 34.8 ml RA : 20.5 ml/m2 LA vol index: 21.6 ml/m2 RVD1 (basal): 3.2 cm LVLs ap4: 5.3 cm LVLd ap2: 6.4 cm TAPSE_phl: 1.8 cm LVLs ap2: 5.8 cm Doppler Measurements & Calculations Ao V2 max: 149.7 cm/sec LVOT Max Simeon: 139.7 cm/sec Ao V2 mean: 104.3 cm/sec LV V1 max P.8 mmHg Ao max P.0 mmHg LV V1 VTI: 34.6 cm Ao mean P.0 mmHg SHERI(I,D): 2.1 cm2 Ao V2 VTI: 37.7 cm SHERI(V,D): 2.1 cm2 sev ratio: 0.92 SHERI indexed to BSA (cm^2/m^2): 1.3 MV E max simeon: 103.0 cm/sec TR max simeon: 220.5 cm/sec MV A max simeon: 101.0 cm/sec TR max P.5 mmHg MV E/A: 1.0 PA V2 max: 84.7 cm/sec Med Peak E' Simeon: 8.6 cm/sec PA V2 mean: 60.3 cm/sec E/E' med: 12.0 PA mean P.0 mmHg Lat Peak E' Simeon: 9.4 cm/sec PA pr(Accel): 0.70 mmHg E/E' lat: 10.9 E/e' average: 11.4 MV dec time: 0.25 sec SV(LVOT): 78.5 ml AV VR_phl: 0.93 SHERI(VTI)/BSA_phl: 1.3 Reading Physician:LUIS E ROMERO Narrative Medical decision making narrative: [67] year old patient presents with Chest pressure and radiation to left arm Multiple etiologies for patient's symptoms considered including, but not limited to: [ cardiac ischemia versus other] Prior Charts reviewed in our EMR Primary Historian: patient Labs reviewed and interpreted by myself: no leukocytosis or left shift, no signs of anemia, primary electrolytes and renal function within normal limits and troponin x2 negative Treatments: ASA 324mg, NG 0.4mg SL x2 patient pain free HEART Score 5 Patient with chest pain and high risk HEART score needs admission for further workup including echo and stress test. It is unclear if there are available stress test slots available at our facility at this time, but after speaking with printer floor covering assistant there is only 1 known stress test, patient will remain in the emergency department until we can confirm the availability of a stress test at our facility. If at that time there are no available slots here the patient will need to be transferred Dr. Mcbride: Patient seen and evaluated by myself. She reports family history mom triple bypass in her 40s and at the age of 58 she was a chronic smoker she is 6 siblings none of whom have coronary artery disease. She says last night while talking to her she had left-sided chest pain lasting for about 20 minutes and then it subsided then returned radiating down her left arm she describes it as a dull ache. She received nitroglycerin and aspirin in the ED 2- troponins no changes in her EKG. High heart score. Unfortunately we are unable to get a stress test here today. 09:[address] Hope on-call cardiology over at [facility] who agrees with transfer. Unfortunately not able to get stress test at [facility] not able to get stress test at [facility] today would have to happen tomorrow. Patient's echo has been read and does not show any significant wall motion abnormalities. Long discussion with patient. She has a very large trip coming up tomorrow. She does not want be transferred she is not want to stay for stress test. She is been chest pain-free here in the ED she is no EKG changes. At this time she would like an outpatient stress test. I have called and spoken to her PCP to help arrange this. Patient is leaving against medical advice. The patient is clinically sober, free from distracting injury, appears to have intact insight, judgment and reason. Does not meet criteria for involuntary hospitalization. Patient has the capacity to make decisions. The patient is also not under any duress to leave the hospital. In this scenario, it would be battery to subject the patient to treatment against his/her will. I have voiced my concerns for the patient's health given that a full evaluation and treatment had not occurred. I have discussed the need for continued evaluation to determine if there symptoms are caused by a condition that present risk of or morbidity. Risk including but not limited to , permanent disability, prolonged hospitalization, prolonged illness, were discussed. I tried offering alternative options in hopes that the patient might be amenable to partial evaluation and treatment which would be medically beneficial to the patient, though the patient declined my options and insisted on leaving. Because I have been unable to convince the patient to stay I answered all of their questions about the condition and ask them to return to the ED as soon as possible to complete their evaluation, especially if their symptoms worsen or do not improve. I emphasized that leaving against medical advice did not preclude returning here for further evaluation. I asked the patient to return if they change their mind about the further evaluation and treatment. I strongly encouraged the patient to return to this emergency department or any emergency department at any time, particularly with worsening symptoms. Discharge Plan Departure Patient Disposition: Left Against Medical Advice Clinical Impression: Chest pain Instructions: DI for Chest Pain Activity Restrictions/Additional Instructions: You are leaving against medical advice, it was recommended you stay in the hospital for stress test. You will need a stress test for further evaluation. I have called and spoke with Dr. Fallon. You will need to follow-up with him he has been made aware. Please report any sort of chest pain to nearest physician Prescriptions: No Action multivitamin Tablet 1 tab PO DAILY estradiol 0.01 % (0.1 mg/gram) cream 1 g vaginal 2XW Qty: 42.5 3RF rosuvastatin 10 mg tablet 10 mg PO DAILY Qty: 90 3RF Referrals: Conor Fallon MD [Primary Care Provider] - Stand Alone Forms: Patient Portal/API, Against Medical Advice
--- NOTE | 2023-02-24 23:54 | DI.RAD.S_ITS ---
PROCEDURE: XR CHEST 1V INDICATIONS: chest pain TECHNIQUE: One view of the chest was acquired. COMPARISON: None. FINDINGS: Surgical changes and devices: None. Lungs and pleura: Lungs are clear. No pleural effusions or pneumothorax. Mediastinum: Mediastinal contours appear normal. Heart size is normal. Bones and chest wall: No suspicious bony lesions. Overlying soft tissues appear unremarkable. IMPRESSION: No acute cardiopulmonary abnormality. Dictated by: Ricky Clark M.D. on 02/25/2023 at 2:00 Approved by: Ricky Clark M.D. on 02/25/2023 at 2:01
[2023-02-25] VITALS (59 sets, daily range): BP systolic 94–154; BP diastolic 46–79; PULSE 47–66; RESP 13–26; O2SAT 96–100
[2023-02-25] MEDS: ASPIRIN 81 MG CHEW TAB 324 MG PO (00:14)
[2023-02-25 00:39] LABS: PTT Partial Thromboplastin Tim 30 SECONDS (26-36)
[2023-02-25 00:41] LABS: Alanine Aminotransferase 26 IU/L (<35); Albumin 4.3 g/dL (3.5-5.0); Albumin Globulin Ratio 1.2 (1.0-2.8); Alkaline Phosphatase 59 U/L (38-126); Aspartate Aminotransferase 32 IU/L (14-36); BUN Creatinine Ratio 27.1 (6-22); Bilirubin Total 0.2 mg/dL (0.2-1.3); Blood Urea Nitrogen 23 mg/dL (7-17); Calcium 9.6 mg/dL (8.4-10.2); Carbon Dioxide 21 mmol/L (22-32); Chloride 105 mmol/L (98-107); Creatine Kinase 72 U/L (30-135); Estimated Glomerular Filt Rate > 60 mL/min (>60); Globulin 3.5 g/dL (1.7-4.1); Glucose 92 mg/dL (80-110); HEMOLYSIS < 15 (0-50); Lipase 273 U/L (23-300); Magnesium 1.9 mg/dL (1.6-2.3); Potassium 4.1 mmol/L (3.4-5.1); Sodium 136 mmol/L (137-145); Total Protein 7.8 g/dL (6.3-8.2)
[2023-02-25 00:48] LABS: Add Manual Diff / Slide Review NO; Basophils Absolute Auto 0 /uL (0-100); Basophils Percent Auto 0.3 % (0-2); Eosinophils Absolute Auto 500 /uL (0-450); Eosinophils Percent Auto 6.2 % (2-4); Hematocrit 39.2 % (36-46); Hemoglobin 13.7 g/dL (12.0-16.0); Lymphocytes Absolute Auto 3400 /uL (1100-4500); Lymphocytes Percent Auto 40.8 % (25-40); Mean Corpuscular Hemoglobin 32.1 PG (26-34); Mean Corpuscular Volume 91.6 fL (80-100); Monocytes Absolute Auto 700 /uL (0-900); Monocytes Percent Auto 8.7 % (3-14); Neutrophils Absolute Auto 3700 /uL (1500-7000); Platelet Count 215 X10^3/uL (150-400); Red Blood Cell Count 4.28 X10^6/uL (4.0-5.2); Red Cell Distribution Width 12.8 % (11.6-14.8); White Blood Cell Count 8.4 X10^3/uL (4.5-11.0)
[2023-02-25 00:50] LABS: D Dimer 455 ng/ml (<500)
[2023-02-25] MEDS: NITROGLYCERIN 0.4 MG SL TAB SL ×2 (00:50→01:01)
[2023-02-25 00:52] LABS: Troponin I < 0.012 ng/mL (0.01-0.034)
[2023-02-25 03:35] LABS: Creatine Kinase 52 U/L (30-135)
[2023-02-25 03:48] LABS: Troponin I < 0.012 ng/mL (0.01-0.034)
--- NOTE | 2023-02-25 06:49 | DI.ECHO.S_ITS ---
[facility]---------+ [facility] +---------+ : : [address] : [address] : : : : [id number] : : : : Phone: [phone]+ Echocardiogram Report + + :Name: IRINA SOLIMAN Study Date: 02/25/2023 Height: 64 in : :[facility] ReadingLocation: Weight: 127 lb : : Gender: Female BSA: 1.6 m2 : :: 1955 Age: 67 yrs BP: 122/68 mmHg: :Reason For Study: Chest Pain : :Ordering Physician: RAE, : :IVETT Performed By: Mayela Pickett : :Referring: IVETT MCBRIDE : + + Interpretation Summary The ejection fraction is estimated to be 60-65%. Diastolic parameters suggest probable normal left ventricular diastolic function and normal filling pressures. The right ventricle is normal in size and function. The right ventricular systolic pressure is estimated to be at least 23 mmHg based on an estimated right atrial pressure of 3 mm Hg. No significant valvular abnormality. Procedure: A two-dimensional transthoracic echocardiogram with color flow and Doppler was performed. The study quality was technically adequate. There is no prior echocardiogram noted for this patient. The patient was in a bradycardic rhythm during the exam. Left Ventricle: The left ventricle is normal in size. The ejection fraction is estimated to be 60-65%. Diastolic parameters suggest probable normal left ventricular diastolic function and normal filling pressures. Right Ventricle: The right ventricle is normal in size and function. Atria: The left atrial size is normal. Right atrial size is normal. There is no Doppler evidence for an interatrial shunt. Mitral Valve: The mitral valve is normal. There is no mitral valve stenosis. There is trace mitral regurgitation. Aortic Valve: The aortic valve is trileaflet. There is mild aortic valve sclerosis. There is no aortic valve stenosis. No aortic regurgitation is present. Tricuspid Valve: The tricuspid valve is normal. There is no tricuspid stenosis. There is trace tricuspid regurgitation. The right ventricular systolic pressure is estimated to be at least 23 mmHg based on an estimated right atrial pressure of 3 mm Hg. Pulmonic Valve: The pulmonic valve is not well visualized. There is no pulmonic valvular stenosis. There is trace pulmonic regurgitation. Great Vessels: The aortic root is normal size. The ascending aorta is normal in size. The pulmonary artery is normal size. The IVC is of normal diameter and collapses greater than 50% with a sniff. This suggests a low right atrial pressure of 3 mm Hg. Pericardium/ Pleura There is no pericardial effusion. There is no pleural effusion. MMode/2D Measurements & Calculations LVIDd: 3.9 cm LVOT diam: 1.7 cm LVIDs: 2.5 cm Ao root diam: 2.5 cm FS: 35.9 % asc Aorta Diam: 3.3 cm IVSd: 1.1 cm LVPWd: 1.0 cm LV wallis. diameter/BSA (cm/m^2): 2.4 LV sys. diameter/BSA (cm/m^2): 1.6 LA A2 area: 15.3 cm2 RA long axis: 4.4 cm LA A4 area: 13.3 cm2 RA area: 13.1 cm2 LA length (vol): 5.0 cm RA vol: 33.1 ml LA vol: 34.8 ml RA : 20.5 ml/m2 LA vol index: 21.6 ml/m2 RVD1 (basal): 3.2 cm LVLs ap4: 5.3 cm LVLd ap2: 6.4 cm TAPSE_phl: 1.8 cm LVLs ap2: 5.8 cm Doppler Measurements & Calculations Ao V2 max: 149.7 cm/sec LVOT Max Simeon: 139.7 cm/sec Ao V2 mean: 104.3 cm/sec LV V1 max P.8 mmHg Ao max P.0 mmHg LV V1 VTI: 34.6 cm Ao mean P.0 mmHg SHERI(I,D): 2.1 cm2 Ao V2 VTI: 37.7 cm SHERI(V,D): 2.1 cm2 sev ratio: 0.92 SHERI indexed to BSA (cm^2/m^2): 1.3 MV E max simeon: 103.0 cm/sec TR max simeon: 220.5 cm/sec MV A max simeon: 101.0 cm/sec TR max P.5 mmHg MV E/A: 1.0 PA V2 max: 84.7 cm/sec Med Peak E' Simeon: 8.6 cm/sec PA V2 mean: 60.3 cm/sec E/E' med: 12.0 PA mean P.0 mmHg Lat Peak E' Simeon: 9.4 cm/sec PA pr(Accel): 0.70 mmHg E/E' lat: 10.9 E/e' average: 11.4 MV dec time: 0.25 sec SV(LVOT): 78.5 ml AV VR_phl: 0.93 SHERI(VTI)/BSA_phl: 1.3 Reading Physician:LUIS E
--- NOTE | 2023-02-25 07:28 | PC.NURSE ---
echo at bedside
--- NOTE | 2023-02-25 07:39 | PC.NURSE ---
per Dr. Martin, patient okay to have water and breakfast tray. Dr. Martin at bedside with pt.
--- NOTE | 2023-02-25 09:28 | PC.NURSE ---
Dr. Martin at bedside with pt
--- NOTE | 2023-02-25 09:56 | PC.NURSE ---
pt and pt present at time of discharge. pt verbalized understanding of dc/fu instructions as discussed thoroughly with Dr. Martin. Pt and pt both signed AMA paperwork and verbalized understanding. educated on importance of returning to ED or calling 911 if symptoms return. pt verbalized understanding. L PIV d/c, intact, pt axo 4, rr even, unlabored, skin WNL, pt left with in nad, ambulatory with steady gait.
== END 2023-02-25 09:59 | disposition left against medical advice (07) ==
PROVIDERS: Emergency Medicine; Emergency Provider Emergency Medicine; PCP Internal Medicine
DX: R07.9 Chest pain, unspecified (principal)
CPT/HCPCS: 36415; 71045; 80053; 82550; 83690; 83735; 84484; 85025; 85379; 85610; 85730; 93005; 93010; 93306; 99284

== ENCOUNTER → 2023-03-21 07:13 | Outpatient (CLI) | payer MEDICARE, SELFPAY ==
--- NOTE | 2023-03-21 07:14 | DI.NM.S_ITS ---
PROCEDURE: NM KIM PERF SPECT REST & STR Rest and exercise myocardial perfusion SPECT with gated imaging and ejection fraction RADIOPHARMACEUTICAL: 25.8 mCi Tc-99m sestamibi IV at rest and 24.7 mCi Tc-99m sestamibi IV at peak exercise. A [id number] was performed. INDICATIONS: Chest pain. TECHNIQUE: Radiopharmaceutical was injected at peak stress test, and also at rest. SPECT images were obtained. SPECT myocardial perfusion images were displayed in short axis, horizontal long axis, and vertical long axis views. Gated images were reviewed using Plyce software. COMPARISON: None. CARDIAC STRESS: A standard Hector treadmill exercise tolerance test was performed by the patient under the supervision of an attending staff. The patient exercised for 9 minutes and 07 seconds; 10.1 METS; functional aerobic impairment (GARFIELD) is -26%. Hemodynamic data: There is normal blood pressure and heart rate response to exercise stress. Patient achieved 91% of maximum predicted heart rate at peak exercise. Maximum blood pressure 176/80. Symptoms: Patient denied chest pain during exercise. EKG: No diagnostic EKG changes of ischemia; no ectopy. FINDINGS: Raw data: There is good myocardial labeling by radiotracer. No significant motion artifacts. Dcrr-tk-xnofv ratio is 0.32 (normal is less than 0.38 for sestamibi tracer, and less than 0.50 for thallium tracer). Left ventricle function: Gated images demonstrate normal left ventricle wall thickening. No segmental wall motion abnormality. No transient ischemic dilation; TID is 0.90 (normal less than 1.3). The left ventricle resting end-diastolic volume is 57 mL. Left ventricle stress ejection fraction is >75%; normal values are above 45%. Myocardial perfusion: There is normal distribution of activity in the left and right ventricular myocardium. No fixed or reversible perfusion defects. IMPRESSION: Low risk study. No evidence of exercise induced ischemia on ECG or SPECT imaging. Small LV size with hyperdynamic function. Normal hemodynamic response to exercise. Very good exercise capacity. Dictated by: Keerthi Rivera D.O. on 03/23/2023 at 13:15 Approved by: Keerthi Rivera D.O. on 03/23/2023 at 13:29
== END ==
PROVIDERS: PCP Internal Medicine; Referring Provider Internal Medicine; Visit Provider Internal Medicine
DX: R07.9 Chest pain, unspecified (principal)
CPT/HCPCS: 78452; 93017; A9502

== ENCOUNTER → 2023-03-28 09:59 | Outpatient (CLI) | payer MEDICARE, SELFPAY ==
--- NOTE | 2023-03-28 | DI.MG.S_ITS ---
BILATERAL DIGITAL SCREENING MAMMOGRAM 3D/2D WITH CAD: 03/28/2023 CLINICAL: Routine screening. Family history of breast cancer. Comparison is made to exams dated: 09/15/2021 mammogram, 08/04/2021 mammogram, 06/06/2020 mammogram, and 02/23/2019 mammogram - [facility]. Both breasts are heterogeneously dense, which may obscure small masses (category c / 51-75% glandular tissue). Current study was also evaluated with a Computer Aided Detection (CAD) system. No significant masses, calcifications, or other findings are seen in either breast. There has been no significant interval change. IMPRESSION: NEGATIVE There is no mammographic evidence of malignancy. A 1 year screening mammogram is recommended. Based on the Tyrer Cuzick model (a risk assessment model) the patient's lifetime risk is 14.5% and her 10 year risk is 8.7%. According to the ACR, ACS, and NCCN guidelines, an annual breast MRI exam along with mammogram is recommended if the patient's lifetime risk is 20% or greater. This exam was interpreted at Station ID: [id number]. NOTE: For mammograms, a report in lay terms will be sent to the patient. Approximately 15% of breast malignancies will not be visualized mammographically. In the management of a palpable breast mass, a negative mammogram must not discourage biopsy of a clinically suspicious lesion. Electronically Signed By: Dave lange/matty:03/28/2023 13:20:38 letter sent: Normal Exam ACR BI-RADS Category 1: Negative [id number]
--- NOTE | 2023-03-28 10:00 | DI.RAD.S_ITS ---
Bone Density Report Name: IRINA SOLIMAN Age: 67 Sex: Female Ethnicity: White Date of : 1955 Indication: osteopenia; monitoring treatment; Referring Provider: ROSEMARY MARTINEZ Study: Bone densitometry was performed. Exam Date: March 28, 2023 Accession number: [id number] Bone Density: Region BMD T-score Z-score Classification AP Spine(L1-L4) 0.790 -2.3 -0.2 Osteopenia Femoral Neck (Left) 0.571 -2.5 -0.7 Osteoporosis Total Hip (Left) 0.734 -1.7 -0.2 Osteopenia Femoral Neck (Right) 0.615 -2.1 -0.3 Osteopenia Total Hip (Right) 0.720 -1.8 -0.3 Osteopenia Total Hip Mean 0.727 -1.8 -0.3 Osteopenia World Health Organization criteria for BMD impression classify patients as: Normal (T-score at or above -1.0), Osteopenia (T-score between -1.0 and -2.5), or Osteoporosis (T-score at or below -2.5). 10-year Fracture Risk: FRAX not reported because: Some T-score for Spine Total or Hip Total or Femoral Neck at or below -2.5 Treated for osteoporosis Previous Exams: -- Region Exam Age BMD T-score BMD Change BMD Change Date g/cm2 vs Baseline vs Previous -- AP Spine (L1-L4) 03/28/2023 67 0.790 -2.3 -0.027 (-3.3%)# -0.027 (-3.3%)# 03/26/2021 65 0.817 -2.1 Total Hip(Left) 03/28/2023 67 0.734 -1.7 0.014 (1.9%)# 0.014 (1.9%)# 03/26/2021 65 0.720 -1.8 Total Hip(Right) 03/28/2023 67 0.720 -1.8 -0.005 (-0.7%)# -0.005 (-0.7%)# 03/26/2021 65 0.725 -1.8 -- *Denotes significance at 95% confidence level, LSC for AP Spine = 0.022 g/cm2, LSC for Total Hip = 0.027 g/cm2 # Denotes dissimilar scan types or analysis methods Impression: The patient has osteoporosis, based on the Left Femoral Neck T-score. No significant bone loss was observed. Discussion: PATIENT UNDER TREATMENT WITH NO SIGNIFICANT BMD LOSS SINCE LAST EXAM. In an untreated patient, BMD typically declines with age. A lack of decline or gain is usually a sign that treatment is efficacious and fracture risk is reduced. It is important to ask patients whether they are taking their medications and to encourage continued and appropriate compliance with their osteoporosis therapies to reduce fracture risk. It is also important to review their risk factors and encourage appropriate calcium and vitamin D intakes, exercise, fall prevention and other lifestyle measures. Follow-Up: Consider a repeat BMD and Vertebral Fracture Assessment (VFA) exam in 2 years or sooner if medically necessary, to reassess this patient's status. Reported by: MIK TRAN M.D. on 03/28/2023 10:46:00 AM.
== END ==
PROVIDERS: PCP Internal Medicine; Referring Provider Internal Medicine; Visit Provider Internal Medicine
DX: N95.1 Menopausal and female climacteric states (principal); Z12.31 Encounter for screening mammogram for malignant neoplasm of breast; Z80.3 Family history of malignant neoplasm of breast; M81.0 Age-related osteoporosis without current pathological fracture
CPT/HCPCS: 77063; 77067; 77080

== ENCOUNTER → 2024-01-03 08:47 | Outpatient (CLI) | payer MEDICARE, SELFPAY ==
[2024-01-03 10:09] LABS: Hematocrit 41.9 % (36-46); Hemoglobin 14.4 g/dL (12.0-16.0); Mean Corpuscular HGB Conc 34.3 % (30-36); Mean Corpuscular Hemoglobin 32.7 PG (26-34); Mean Corpuscular Volume 95.3 fL (80-100); Platelet Count 212 X10^3/uL (150-400); Red Cell Distribution Width 13.3 % (11.6-14.8)
[2024-01-03 11:09] LABS: Aspartate Aminotransferase 34 IU/L (14-36); BUN Creatinine Ratio 18.7 (6-22); Blood Urea Nitrogen 20 mg/dL (7-17); Calcium 9.4 mg/dL (8.4-10.2); Carbon Dioxide 24 mmol/L (22-32); Chloride 104 mmol/L (98-107); Cholesterol 190 mg/dL (140-199); Estimated Glomerular Filt Rate 56 mL/min (>60); Glucose 88 mg/dL (80-110); HDL Cholesterol 77 mg/dL (40-60); HEMOLYSIS < 15 (0-50); LDL Cholesterol Calculated 101 mg/dL (<100); Potassium 4.4 mmol/L (3.4-5.1); Sodium 137 mmol/L (137-145); Triglycerides 59 mg/dL (35-150)
[2024-01-03 11:59] LABS: TSH w/ Reflex to FT4 1.34 uIU/mL (0.47-4.68)
== END ==
PROVIDERS: PCP Internal Medicine; Referring Provider Internal Medicine; Visit Provider Internal Medicine
DX: E78.2 Mixed hyperlipidemia (principal); M19.90 Unspecified osteoarthritis, unspecified site; R53.83 Other fatigue
CPT/HCPCS: 36415; 80048; 80061; 84443; 84450; 85027

== ENCOUNTER → 2024-04-13 07:54 | Outpatient (CLI) | payer MEDICARE, SELFPAY ==
--- NOTE | 2024-04-13 07:55 | DI.MG.S_ITS ---
BILATERAL DIGITAL SCREENING MAMMOGRAM 3D/2D WITH CAD: 04/13/2024 CLINICAL: Routine screening. Family history of breast cancer. Comparison is made to exams dated: 03/28/2023 mammogram, 08/04/2021 mammogram, and 06/06/2020 mammogram - [facility]. The breasts are heterogeneously dense, which may obscure small masses (category c / 51-75% glandular tissue). Current study was also evaluated with a Computer Aided Detection (CAD) system. No significant masses, calcifications, or other findings are seen in either breast. There has been no significant interval change. IMPRESSION: NEGATIVE There is no mammographic evidence of malignancy. A 1 year screening mammogram is recommended. Based on the Tyrer Cuzick model (a risk assessment model) the patient's lifetime risk is 13.8% and her 10 year risk is 8.9%. According to the ACR, ACS, and NCCN guidelines, an annual breast MRI exam along with mammogram is recommended if the patient's lifetime risk is 20% or greater. This exam was interpreted at Station ID: [id number]. NOTE: For mammograms, a report in lay terms will be sent to the patient. Approximately 15% of breast malignancies will not be visualized mammographically. In the management of a palpable breast mass, a negative mammogram must not discourage biopsy of a clinically suspicious lesion. Electronically Signed By: Ricky villa/matty:04/13/2024 12:00:25 letter sent: Normal Exam ACR BI-RADS Category 1: Negative
== END ==
PROVIDERS: PCP Internal Medicine; Referring Provider Internal Medicine; Visit Provider Internal Medicine
DX: Z12.31 Encounter for screening mammogram for malignant neoplasm of breast (principal); Z80.3 Family history of malignant neoplasm of breast; R92.333 Mammographic heterogeneous density, bilateral breasts
CPT/HCPCS: 77063; 77067

== ENCOUNTER → 2024-05-16 16:11 | Outpatient (CLI) | payer MEDICARE, SELFPAY ==
--- NOTE | 2024-05-16 16:12 | DI.RAD.S_ITS ---
PROCEDURE: XR CHEST 2V INDICATIONS: cough since Feb, visited [place] TECHNIQUE: 2 views of the chest were acquired. COMPARISON: [facility], CR, XR CHEST 1V, 02/24/2023, 23:57. FINDINGS: Surgical changes and devices: None. Lungs and pleura: Lungs are clear. No pleural effusions or pneumothorax. Mediastinum: Mediastinal contours are normal. Heart size is normal. Atherosclerotic vascular calcification noted in the aortic arch. Bones and chest wall: No suspicious bony abnormalities. Soft tissues appear unremarkable. IMPRESSION: No acute cardiopulmonary abnormality is seen. Approved by: Wil Baldwin M.D. on 05/17/2024 at 13:05
== END ==
LOC: RAD 16:11
PROVIDERS: PCP Internal Medicine; Referring Provider Physician Assistant; Visit Provider Physician Assistant
DX: J32.9 Chronic sinusitis, unspecified (principal)
CPT/HCPCS: 71046

== ENCOUNTER 2024-08-11 07:10 | Emergency (ER) | payer MEDICARE, SELFPAY ==
[2024-08-11] VITALS (14 sets, daily range): BP systolic 125–172; BP diastolic 70–81; PULSE 57–76; RESP 18–21; TEMP 36.6; O2SAT 98–100; BMI 22.6
--- NOTE | 2024-08-11 07:25 | EKG_ITS ---
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
--- NOTE | 2024-08-11 07:26 | DI.RAD.S_ITS ---
PROCEDURE: XR CHEST 1V INDICATIONS: chest pain TECHNIQUE: One view of the chest was acquired. COMPARISON: [facility], CR, XR CHEST 2V, 05/16/2024, 16:18. FINDINGS: Surgical changes and devices: None. Lungs and pleura: Lungs are clear. No pleural effusions or pneumothorax. Mediastinum: Mediastinal contours appear normal. Heart size is normal. Bones and chest wall: No suspicious bony lesions. Overlying soft tissues appear unremarkable. IMPRESSION: No acute cardiopulmonary abnormalities or focal consolidation. Dictated by: Marcial Urrutia M.D. on 08/11/2024 at 7:45 Approved by: Marcial Urrutia M.D. on 08/11/2024 at 7:45
[2024-08-11 07:35] LABS: Add Manual Diff / Slide Review NO; Basophils Absolute Auto 200 /uL (0-100); Basophils Percent Auto 1.8 % (0-2); Eosinophils Absolute Auto 200 /uL (0-450); Eosinophils Percent Auto 2.2 % (2-4); Hematocrit 42.3 % (36-46); Hemoglobin 14.5 g/dL (12.0-16.0); Lymphocytes Absolute Auto 3700 /uL (1100-4500); Lymphocytes Percent Auto 41.6 % (25-40); Mean Corpuscular HGB Conc 34.2 % (30-36); Mean Corpuscular Hemoglobin 32.2 PG (26-34); Monocytes Absolute Auto 800 /uL (0-900); Monocytes Percent Auto 8.7 % (3-14); Neutrophils Absolute Auto 4100 /uL (1500-7000); Neutrophils Percent Auto 45.7 % (50-75); Platelet Count 244 X10^3/uL (150-400); Red Cell Distribution Width 13.4 % (11.6-14.8)
[2024-08-11 07:42] LABS: Prothrombin Time 11.3 SECONDS (9.4-12.5)
[2024-08-11 07:45] LABS: PTT Partial Thromboplastin Tim 31 SECONDS (25.1-36.5)
[2024-08-11 07:46] LABS: Alanine Aminotransferase 26 IU/L (<35); Albumin 4.3 g/dL (3.5-5.0); Albumin Globulin Ratio 1.2 (1.0-2.8); Alkaline Phosphatase 52 U/L (38-126); Aspartate Aminotransferase 40 IU/L (14-36); BUN Creatinine Ratio 20.2 (6-22); Bilirubin Total 0.7 mg/dL (0.2-1.3); Blood Urea Nitrogen 24 mg/dL (7-17); Calcium 9.1 mg/dL (8.4-10.2); Carbon Dioxide 20 mmol/L (22-32); Chloride 103 mmol/L (98-107); Creatine Kinase 62 U/L (30-135); Estimated Glomerular Filt Rate 49 mL/min (>60); Globulin 3.5 g/dL (1.7-4.1); Glucose 83 mg/dL (80-110); Lipase 294 U/L (23-300); Magnesium 1.8 mg/dL (1.6-2.3); Potassium 4.3 mmol/L (3.4-5.1); Sodium 132 mmol/L (137-145); Total Protein 7.8 g/dL (6.3-8.2)
[2024-08-11 07:47] LABS: HEMOLYSIS 51 (0-50)
--- NOTE | 2024-08-11 07:52 | ED.ABDPAIN ---
HPI - Abdominal Pain General Chief Complaint: Dizziness Stated Complaint: Dizziness, , Blood in Urine Time Seen by Provider: 08/11/24 07:28 Source: patient Mode of arrival: Family Vehicle History of Present Illness HPI narrative: 69-year-old female history of dyslipidemia seen in the past 3 months for intermittent hematuria seen at 3 different urgent care given antibiotics for UTI. Patient presents today with intermittent hematuria since last weekend along with right groin pain and right-sided back pain but no nausea vomiting diarrhea or constipation or any history of kidney stone. Patient denies fever, chills, dysuria, urgency, frequency, vaginal discharge. Other than what is stated 14 point review of system is negativ.e Related Data Previous Rx's Medication Instructions Recorded estradiol 0.01% (0.1 mg/gram) 1 g vaginal 2XW #42.5 grams 04/08/22 vaginal cream pravastatin 10 mg tablet 10 mg PO BEDTIME #90 tabs 11/02/23 amoxicillin 875 mg-potassium 1 tab PO BID #20 tabs 05/16/24 clavulanate 125 mg tablet fluticasone propionate 50 1 spray intranasal DAILY #16 grams 05/16/24 mcg/actuation nasal spray,suspension (Flonase Allergy Relief) Allergies Allergy/AdvReac Type Severity Reaction Status Date / Time alendronate sodium AdvReac Intermediate GI upset Verified 05/16/24 16:00 rosuvastatin AdvReac Intermediate Chest Pain Verified 05/16/24 16:00 Review of Systems Review of Systems ROS Unobtainable: All systems reviewed & are unremarkable except as noted in HPI and below Patient History Medical History Migraine with aura, not intractable Cervicalgia Pelvic pain Menopausal syndrome Mixed hyperlipidemia Chronic right-sided low back pain without sciatica Tendonitis of left rotator cuff Right rotator cuff tendonitis Acne Osteoarthritis (~2009) Migraines Osteoporosis (~1999) Mumps Chicken pox Painful menstrual periods (~2001) Ovarian cyst (~2001) Healthy adult Surgical History Anesthesia S/P ACL surgery (~07/2007) History of appendectomy (~12/1986) History of section Family History Father Accident Mother History of heart disease Brother Mental health problem Sister History of heart disease Overweight Grandfather Cancer Grandmother Fall Social History marital status: details: James Jones, cousin David Conner, 3 children, 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 Well-developed patient, in mild distress. HEAD: Atraumatic. Normocephalic. EYES: Pupils equal round and reactive. Extraocular motions intact. No scleral icterus. No injection or drainage. ENT: Nose without bleeding, purulent drainage. Throat without erythema, tonsillar hypertrophy or exudate. Airway patent. NECK: Trachea midline. Non tender CARDIOVASCULAR: Regular rate and rhythm without murmurs, gallops, or rubs. RESPIRATORY: Clear to auscultation. Breath sounds equal bilaterally. No wheezes, rales, or rhonchi. GASTROINTESTINAL: Abdomen soft, non-tender, nondistended. EXTREMITIES: No edema or joint tenderness. BACK: Nontender without deformity or crepitance. No flank tenderness. NEURO: AOx3. SKIN: No rash or erythema of visible areas Initial Vital Signs Initial Vital Signs: Vital Signs Temperature 97.9 F 08/11/24 07:29 Pulse Rate 73 08/11/24 07:29 Respiratory Rate 18 08/11/24 07:29 Blood Pressure 172/81 H 08/11/24 07:29 Pulse Oximetry 100 08/11/24 07:29 Oxygen Delivery Method Room Air 08/11/24 07:29 Course Orders Ordered: ED Orders 08/11/24 07:25 Complete Blood Count AUTO DIFF Stat Comprehensive Metabolic Panel Stat Lipase Stat Magnesium Stat NT-proBNP (BNP-Adult 18+) Stat PTT Partial Thromboplastin Erich Stat Prothrombin Time INR Stat Troponin & CK Cardiac Panel Stat 08/11/24 07:26 XR chest 1V Stat EKG-12 Lead Stat 08/11/24 07:52 CT abdomen pelvis w con Stat 08/11/24 08:41 Urine Microscopic Stat 08/11/24 09:55 Ammonia (NH3) Stat Complete Blood Count AUTO DIFF Stat Comprehensive Metabolic Panel Stat Lipase Stat Discontinued Medications Aspirin (Aspirin 81 Mg Chew Tab) 324 mg PO NOW ONE Stop: 08/11/24 07:27 Last Admin: 08/11/24 07:29 Dose: Not Given Documented By: DONNA Sodium Chloride (Normal Saline 0.9%) 1,000 mls @ 1,000 mls/hr IV BOLUS ONE Stop: 08/11/24 08:50 Last Admin: 08/11/24 07:59 Dose: 1,000 mls/hr Documented By: MIGNON Vital Signs Vital signs: Vital Signs - 8 hr 08/11/24 07:29 Temperature 97.9 F Pulse Rate 73 Respiratory Rate 18 Blood Pressure 172/81 H Pulse Oximetry 100 Oxygen Delivery Method Room Air MDM - Abdominal Pain Lab Data 08/11/24 09:55 08/11/24 07:25 Labs: Lab Results 08/11/24 08/11/24 08/11/24 Range/Units 07:25 08:41 09:55 WBC 9.0 8.0 (4.5-11.0) X10^3/uL RBC 4.50 4.26 (4.0-5.2) X10^6/uL Hgb 14.5 13.9 (12.0-16.0) g/dL Hct 42.3 40.0 (36-46) % MCV 94.0 94.0 (80-100) fL MCH 32.2 32.7 (26-34) PG MCHC 34.2 34.8 (30-36) % RDW 13.4 13.6 (11.6-14.8) % Plt Count 244 233 (150-400) X10^3/uL Neut % (Auto) 45.7 L 52.2 (50-75) % Lymph % (Auto) 41.6 H 36.1 (25-40) % Jackson % (Auto) 8.7 9.0 (3-14) % Eos % (Auto) 2.2 1.8 L (2-4) % Baso % (Auto) 1.8 0.9 (0-2) % Neut # (Auto) 4100 4200 (5440-6779) /uL Lymph # (Auto) 3700 2900 (4446-0926) /uL Jackson # (Auto) 800 700 (0-900) /uL Eos # (Auto) 200 100 (0-450) /uL Baso # (Auto) 200 H 100 (0-100) /uL PT 11.3 (9.4-12.5) SECONDS INR 1.0 (0.9-1.3) APTT 31 (25.1-36.5) SECONDS Sodium 132 L (137-145) mmol/L Potassium 4.3 (3.4-5.1) mmol/L Chloride 103 (98-107) mmol/L Carbon Dioxide 20 L (22-32) mmol/L BUN 24 H (7-17) mg/dL Creatinine 1.19 H (0.52-1.04) mg/dL Estimated GFR 49 L (>60) mL/min BUN/Creatinine Ratio 20.2 (6-22) Glucose 83 (80-110) mg/dL Calcium 9.1 (8.4-10.2) mg/dL Magnesium 1.8 (1.6-2.3) mg/dL Total Bilirubin 0.7 (0.2-1.3) mg/dL AST 40 H (14-36) IU/L ALT 26 (<35) IU/L Alkaline Phosphatase 52 (38-126) U/L Total Creatine Kinase 62 (30-135) U/L Troponin I < 0.012 (0.01-0.034) ng/mL NT-Pro-B Natriuret Pep 67 (<125) pg/mL Total Protein 7.8 (6.3-8.2) g/dL Albumin 4.3 (3.5-5.0) g/dL Globulin 3.5 (1.7-4.1) g/dL Albumin/Globulin Ratio 1.2 (1.0-2.8) Lipase 294 (23-300) U/L Urine RBC None seen (0-5/HPF) Urine WBC 1-5/hpf (0-5/HPF) Ur Squamous Epith Cells 1-5 /hpf (0-5/HPF) Urine Bacteria None seen (None) Ur Culture Indicated? Cult not indicated Vol Urine Centrifuged 10ml (spun) Point of care testing: Urine Dip Bedside Urine Glucose Negative Bedside Urine Bilirubin - Negative Bedside Urine Ketone - Negative Urine Specific Normanna 1.000 Bedside Urine Occult Blood - Negative Bedside Urine pH 7.0 Bedside Urine Protein - Negative Bedside Urine Urobilinogen - Negative Bedside Urine Nitrite - Negative Bedside Urine Leukocytes - Negative Esterase Imaging Data CT scan - abdomen/pelvis: Radiologist's Impression: [address] [address] [address] Scan Report Signed Patient: Kayla Aguillon MR#: [id number] : 1955 Acct:[id number] Age/Sex: 69 / F Date of Service: 08/11/24 Loc: ED Accession Number: [id number] Procedure: CT abdomen pelvis w con Ordering Provider: Kristofer Westbrook D.O. PROCEDURE: CT ABDOMEN PELVIS W CON INDICATIONS: abd pain /hematuria TECHNIQUE: After the administration of intravenous contrast, axial sections acquired from the lung bases to the pubic symphysis. Coronal and sagittal reformats were performed. For radiation dose reduction, the following was used: automated exposure control, adjustment of mA and/or kV according to patient size. COMPARISON: None available for review. FINDINGS: Image quality: Diagnostic. Lower Chest: Mild bibasilar atelectasis. Very small hiatal hernia. Heart size is normal. ABDOMEN: Liver: No solid mass. Gallbladder: No radiopaque gallstones or wall thickening. Biliary ducts: No biliary dilation. Pancreas: Homogeneous enhancement without focal lesions or pancreatic ductal dilatation. No peripancreatic inflammation or organized fluid collections. Spleen: Size is within normal limits. Adrenal Glands: No adrenal nodules. Kidneys and Ureters: There is mild right renal pelvic dilatation without hydronephrosis. Mild prominence of the proximal right ureter. No perinephric stranding or periureteral stranding seen. No radiodense uroliths identified within the right kidney or right ureter. No stones identified within the urinary bladder. Left kidney and ureter appear normal. Stomach and Bowel: Normal colonic caliber, without significant wall thickening. Multiple fluid-filled loops of small bowel without distention or inflammatory changes. Mild circumferential wall thickening of the rectum. No evidence for small bowel obstruction or associated inflammatory changes. The appendix is not definitively visualized. However, no secondary findings of acute inflammation are noted in the right lower quadrant. Peritoneum: No abnormal intraperitoneal fluid. No free air. Ventral Wall: No significant ventral hernia. Abdominal Nodes: No retroperitoneal or mesenteric adenopathy by size criteria. Vessels: Scattered atherosclerotic calcifications of the abdominal aorta and iliac vessels without aneurysmal dilatation. The inferior vena cava appears patent. PELVIS: Pelvic Organs: Unremarkable. Bladder: No bladder wall thickening, accounting for underdistention. Pelvic Nodes: No enlarged lymph nodes. Miscellaneous: No inguinal hernias are seen. Bones: No aggressive osseous abnormality. Visualized osseous structures appear intact without acute fracture or focal destructive lesion. No acute compression fractures of the imaged spine. IMPRESSION: 1. Multiple loops of fluid-filled, nondistended small bowel. This is nonspecific but may represent enteritis either infectious or inflammatory in etiology. 2. Mild circumferential wall thickening of the rectum and suggestion of minimal adjacent stranding. Recommend correlation for possible proctitis. 3. Mild prominence of the right renal pelvis and proximal right ureter without hydronephrosis or associated inflammatory changes of the right kidney and ureter. No obstructing stone. No urinary bladder stone. ECG Data Attestation: I personally reviewed and interpreted this ECG as follows: Interpretation: HR 64 CA 144 QRS [address] t wave chanvge Unchanged from 02/25/23 [facility] Narrative Medical decision making narrative: All lab work CT scan vital signs nurse triage note medication list and previous ER visits all reviewed. Differential diagnosis includes tumor, mass, GI bleed, diverticular bleed, UTI kidney stone. I have given the patient a copy of the CT scan report she will follow up with her PCP. She is not on any anticoagulants at this time return with new or worsening symptoms Discharge Plan Departure Patient Disposition: Home Clinical Impression: Abdominal pain Qualifiers: Abdominal location: lower abdomen, unspecified Qualified Code(s): R10.30 - Lower abdominal pain, unspecified Hematuria Qualifiers: Hematuria type: unspecified type Qualified Code(s): R31.9 - Hematuria, unspecified Instructions: DI for Abdominal Pain-Adult Activity Restrictions/Additional Instructions: Return with new or worsening symptoms follow up with PCP next week. Prescriptions: No Action pravastatin 10 mg tablet 10 mg PO BEDTIME Qty: 90 3RF amoxicillin-pot clavulanate 875-125 mg tablet 1 tab PO BID Qty: 20 0RF fluticasone propionate [Flonase Allergy Relief] 50 mcg/actuation spray,suspension 1 spray intranasal DAILY Qty: 16 0RF Rx Instructions: administer into each nostril estradiol 0.01 % (0.1 mg/gram) cream 1 g vaginal 2XW Qty: 42.5 3RF Referrals: Conor Fallon MD [Primary Care Provider] - Stand Alone Forms: Patient Portal/API/Survey
[2024-08-11 07:57] LABS: NT-proBNP (BNP-Adult 18+) 67 pg/mL (<125); Troponin I < 0.012 ng/mL (0.01-0.034)
[2024-08-11] MEDS: SODIUM CHLORIDE 0.9% 1,000 ML 1000 ML IV (07:59)
[2024-08-11 09:55] LABS: Bacteria Urine None Seen; Culture Indicated Urine Cult Not Indicated; RBC Urine None Seen (0-5/HPF); Squamous Epithelial Cell Urine 1-5 /HPF (0-5/HPF); Urine Volume 10mL (spun); WBC Urine 1-5/HPF (0-5/HPF)
[2024-08-11 10:12] LABS: Add Manual Diff / Slide Review NO; Basophils Absolute Auto 100 /uL (0-100); Basophils Percent Auto 0.9 % (0-2); Eosinophils Absolute Auto 100 /uL (0-450); Eosinophils Percent Auto 1.8 % (2-4); Hemoglobin 13.9 g/dL (12.0-16.0); Lymphocytes Absolute Auto 2900 /uL (1100-4500); Lymphocytes Percent Auto 36.1 % (25-40); Mean Corpuscular HGB Conc 34.8 % (30-36); Mean Corpuscular Hemoglobin 32.7 PG (26-34); Monocytes Absolute Auto 700 /uL (0-900); Neutrophils Absolute Auto 4200 /uL (1500-7000); Neutrophils Percent Auto 52.2 % (50-75); Platelet Count 233 X10^3/uL (150-400); Red Blood Cell Count 4.26 X10^6/uL (4.0-5.2); Red Cell Distribution Width 13.6 % (11.6-14.8)
[2024-08-11 10:29] LABS: Alanine Aminotransferase 24 IU/L (<35); Albumin 4.1 g/dL (3.5-5.0); Albumin Globulin Ratio 1.2 (1.0-2.8); Alkaline Phosphatase 64 U/L (38-126); Aspartate Aminotransferase 34 IU/L (14-36); Bilirubin Total 0.7 mg/dL (0.2-1.3); Blood Urea Nitrogen 22 mg/dL (7-17); Carbon Dioxide 21 mmol/L (22-32); Chloride 104 mmol/L (98-107); Estimated Glomerular Filt Rate 50 mL/min (>60); Globulin 3.3 g/dL (1.7-4.1); Glucose 88 mg/dL (80-110); HEMOLYSIS < 15 (0-50); Lipase 242 U/L (23-300); Potassium 4.5 mmol/L (3.4-5.1); Sodium 133 mmol/L (137-145); Total Protein 7.4 g/dL (6.3-8.2)
[2024-08-11 10:30] LABS: Ammonia (NH3) < 9 umol/L (9-30)
== END 2024-08-11 11:13 | disposition home or self-care (01) ==
PROVIDERS: Emergency Provider Family Medicine; PCP Internal Medicine
DX: R10.30 Lower abdominal pain, unspecified (principal); R31.9 Hematuria, unspecified
CPT/HCPCS: 71045; 74177; 80053; 81003; 81015; 82140; 82550; 83690; 83735; 83880; 84484; 85025; 85610; 85730; 93005; 96360; 96361; 99284; Q9967

== ENCOUNTER → 2024-09-05 09:25 | Outpatient (CLI) | payer MEDICARE, SELFPAY | PROVIDERS: PCP Internal Medicine; Visit Provider Urology | DX: N39.0 Urinary tract infection, site not specified (principal); R31.0 Gross hematuria; N13.30 Unspecified hydronephrosis; R10.9 Unspecified abdominal pain; Z77.22 Contact with and (suspected) exposure to environmental tobacco smoke (acute) (chronic) | CPT/HCPCS: 51798; 81002; 87086; 99214 ==

== ENCOUNTER → 2024-09-20 08:23 | Outpatient (CLI) | payer MEDICARE, SELFPAY | PROVIDERS: PCP Internal Medicine; Visit Provider Urology | DX: N39.0 Urinary tract infection, site not specified (principal) | CPT/HCPCS: 87086; 99214 ==

== ENCOUNTER → 2024-10-18 16:41 | Outpatient (ROUT) | payer MEDICARE, SELFPAY ==
[2024-10-18 16:53] LABS: Appearance Urine UA SL CLOUDY; Bilirubin Urine UA NEGATIVE (NEGATIVE); Color Urine UA YELLOW; Glucose Urine UA NEGATIVE (Negative); Ketones Urine UA NEGATIVE (NEGATIVE); Leukocyte Esterase Urine UA 3+ (NEGATIVE); Nitrite Urine UA NEGATIVE (Negative); Occult Blood Urine UA 1+ (Negative); Protein Urine UA NEGATIVE (Negative); Specific Gravity Urine UA 1.015 (1.000-1.035); Urobilinogen Urine UA 0.2 E.U./dL (0.2)
[2024-10-18 17:21] LABS: Squamous Epithelial Cell Urine 1-5 /HPF (0-5/HPF); Urine Volume 10mL (spun)
[2024-10-18 17:22] LABS: Bacteria Urine Moderate (10-30); Culture Indicated Urine Specimen Cultured; RBC Urine 1-5/HPF (0-5/HPF); WBC Urine 30-100/HPF (0-5/HPF)
== END ==
PROVIDERS: PCP Internal Medicine; Visit Provider Urology
DX: N39.0 Urinary tract infection, site not specified (principal); R31.0 Gross hematuria
CPT/HCPCS: 81001; 87086

== ENCOUNTER 2024-11-01 06:26 | Day surgery (SDC) | payer MEDICARE, SELFPAY ==
[2024-10-19 12:44] VITALS: BMI 22.6
--- NOTE | 2024-11-01 | DI.RAD.S_ITS ---
PROCEDURE: XR ABDOMEN 1V INDICATIONS: OR TECHNIQUE: 2 intra-operative images acquired by the Urology service. COMPARISON: None. FINDINGS: Two digital image from the OR showing contrast injected of the distal right ureter. There is mild right hydronephrosis with mild UPJ narrowing. Right ureter appears grossly normal. 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 Dictated by: Kristofer Gomez M.D. on 11/02/2024 at 13:00 Approved by: Kristofer Gomez M.D. on 11/02/2024 at 13:01
--- NOTE | 2024-11-01 | PATH_ITS ---
[facility] Accession Number: [id number] No. of containers..01 Tissue . 01 Material submitted: . endometrium - ENDOMETRIAL CURETTINGS . 01 Diagnosis: ENDOMETRIAL CURETTINGS: Disordered proliferative endometrium; negative for endometrioid intraepithelial neoplasia or malignancy. Portions of myometrium; negative for significant atypia. Ectocervix with no significant atypia. MRV 11/08/2024 1234 Local . 01 Electronically signed: . Jaye Pineda MD, Pathologist NPI- [id number] . 01 Gross description: . ENDOMETRIAL CURETTINGS: Received in formalin are minute fragments of mucoid and hemorrhagic material measuring 2.5 x 2.5 x 0.3 cm in aggregate. Submitted in toto in 1 cassette. /MARIKA 11/05/2024 2017 Local . 01 Pathologist provided ICD-10: N95.0, N85.00, R31.0, N13.30 . 01 CPT . 225063 Specimen Comment: A courtesy copy of this report has been sent to [phone] Performed at: [address] [address], [place], [place] [id number] MD Sandro Abarca MD Phone: [phone]
[2024-11-01 06:42] VITALS: BP 121/71; PULSE 68; RESP 16; TEMP 36.2; O2SAT 98; BMI 22.6
[2024-11-01] MEDS: LACTATED RINGERS 1,000 ML 42 ML IV ×2 (06:54→08:25)
--- NOTE | 2024-11-01 07:26 | P.HPOB_ITS ---
History of Present Illness History of Present Illness Reason for admission: vaginal bleeding Narrative: Kayla Aguillon is a 69 year old female 3 para 3 who presents for a D&C hysteroscopy with possible removal of endometrial polyp. This is being done due to postmenopausal bleeding, and a cystic thickening of the endometrium. [facility] Medical History Secondhand smoke exposure Right flank pain Hydronephrosis, right Gross hematuria Recurrent UTI Migraine with aura, not intractable Cervicalgia Pelvic pain Menopausal syndrome Mixed hyperlipidemia Chronic right-sided low back pain without sciatica Tendonitis of left rotator cuff Right rotator cuff tendonitis Acne Osteoarthritis (~2009) Migraines Osteoporosis (~1999) Mumps Chicken pox Painful menstrual periods (~2001) Ovarian cyst (~2001) Healthy adult Surgical History S/P wisdom tooth extraction Anesthesia S/P ACL surgery (~07/2007) History of appendectomy (~12/1986) History of section Family History Father Accident Mother History of heart disease Brother Mental health problem Sister History of heart disease Overweight Grandfather Cancer Grandmother Fall Social History marital status: details: James Jones, cousin David Conner, 3 children, 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: 3 household members: spouse Smoking Status: Never smoker alcohol intake: current Meds Home Medications and Allergies Home Medications ?Medication ?Instructions ?Recorded ?Confirmed ?Type pravastatin 10 mg tablet 10 mg PO BEDTIME #90 tabs 11/01/24 Rx fluticasone propionate 50 1 spray intranasal Q12H PRN nasal 09/05/24 11/01/24 H istory mcg/actuation nasal congestion spray,suspension (Flonase Allergy Relief) Allergies Allergy/AdvReac Type Severity Reaction Status Date / Time alendronate sodium AdvReac Intermediate GI upset Verified 11/01/24 06:37 rosuvastatin AdvReac Intermediate Chest Pain Verified 11/01/24 06:37 Exam Vital Signs (past 8 hours): - 06/26/25 06:42 Temperature 97.2 F L Pulse Rate 68 Respiratory Rate 16 Blood Pressure 121/71 Pulse Oximetry 98 Oxygen Delivery Method Room Air Oxygen Delivery Method Room Air Narrative Exam Narrative: HEENT: No thyromegaly, no anterior cervical or supraclavicular lymphadenopathy. Lungs:Clear to auscultation bilaterally, no wheezes. Cardiovascular: Regular rate and rhythm, no murmurs, rubs, or gallops. Abdomen: Well-healed scars. No hepatosplenomegaly. No masses palpable. External genitalia: Normal Vagina: Normal Cervix: Normal Bimanual exam: 8 Week size anteverted uterus. Mobile. Extremities: No edema Assessment & Plan Assessment & Plan narrative: Assessment: 69-year-old 3 para 3 with postmenopausal bleeding and a cystic thickening of the endometrium Plan: D&C hysteroscopy with possible polypectomy The risks, benefits, and alternatives to the procedure were explained to the patient. The risks including bleeding, infection, and uterine perforation. She understands these risks and agrees to proceed. A full par Q was held and consent form was signed. Time-Based Coding :: [TOTAL MINUTES] spent with patient and on the chart (including review of chart, obtaining history, exam, reviewing outside data, placing orders, documenting exam and treatment plan, and counseling patient) on [DATE].
--- NOTE | 2024-11-01 07:29 | PM.PREOP ---
Pre-operative Note Interval Note History & Physical reviewed/Exam performed by Physician: Yes Changes to H&P: No H&P completed within 30 days and has changed as indicated here:: 11/01/24
--- NOTE | 2024-11-01 07:37 | PM.PREOP ---
Pre-operative Note COVID-19 COVID-19 status: Not tested Interval Note History & Physical reviewed/Exam performed by Physician: Yes Changes to H&P: No
[2024-11-01] MEDS: CEFAZOLIN 2 GM/100 ML PREMIX 100 ML IV (08:00)
[2024-11-01] MEDS: ACETAMINOPHEN IV 1,000 MG/100 ML VIAL 400 MG IV (08:10)
--- NOTE | 2024-11-01 08:13 | PM.OP.1 ---
Operative Date/Time/Diagnoses Date of procedure: 11/01/24 Time of procedure: 07:55 Pre-op diagnosis: Gross hematuria, right hydronephrosis Post-op diagnosis: same Procedure & Clinicians Procedure: Cystoscopy Right retrograde ureteropyelogram Same procedure(s) as scheduled: Yes Indications: 69 y/o F noted to have intermittent gross hematuria over the past few months in the setting of a CT Abd/Pel in August of 2024 that was notable for mild right hydronephrosis with proximal right hydroureter. As she is undergoing another surgery with Dr. Regalado under anesthesia, discussed the need for a cystoscopy, possible transurethral resection of bladder tumor, right retrograde ureteropyelogram and possible right ureteral stent placement. Surgeon: Rico Cervantes Click Yes if Unassisted: Yes Anesthesia Type: General Operative Notes Findings: Unremarkable cystoscopy, mild right hydronephrosis, no ureteral mass appreciated Closure Type: not applicable Specimen(s): none sent Applied: none Estimated Blood Loss (mL): 1 Blood products transfused: none Procedure in detail: Patient was identified in the preoperative holding area and consent confirmed. She was then brought to the operating room where general anesthesia was induced.? She was then placed in the low lithotomy position. She was then prepped and draped in the usual sterile fashion. A surgical timeout was conducted and all were in agreement. Access to the bladder was obtained via a 21Fr cystoscope.? Complete cystoscopy was performed and no concerning masses or lesions were noted. Bilateral ureteral orifices were easily visualized and noted to be orthotopic in nature. The right ureteral orifice was easily visualized and a 0.035 sensor tip ureteral guidewire was advanced through the 5Fr ureteral catheter and into the right renal collecting system.? The ureteral guidewire was removed and a retrograde pyelogram was performed which noted mild right hydronephrosis, however, no transition point concerning for a stricture and no filling defect concerning for a mass.? The ureteral catheter was then removed.? The bladder was then drained and the cystoscope was removed.? At this point, care of the patient was turned over to Dr. Regalado, please see her separate dictation for further details. Complications: none Post-operative Condition: stable Disposition: PACU Plan for aftercare: Will need to continue to perform UA's every 12 months with either her PCP or in the Urology clinic for the next 3-5 years. Should she continue to suffer from microscopic hematuria or have recurrence of her gross hematuria more than 3-5 years from now, would re-evaluate with a cystoscopy and CT IVP.
--- NOTE | 2024-11-01 08:14 | SUR.OPER ---
Lithotomy on padded OR bed, head on pillow, arms secured on padded arm boards at <90 degrees abduction. Legs secured in padded yellow fins stirrups.
--- NOTE | 2024-11-01 08:31 | PM.GYNOP.1 ---
Operative Date/Time/Diagnoses Date of procedure: 11/01/24 Time of procedure: 08:31 Pre-op diagnosis: Postmenopausal bleeding Thickened endometrial lining with cystic areas Post-op diagnosis: same Procedure & Clinicians Procedure: Procedures Operation Date: 11/01/24 07:45 Actual Procedure Side Surgeon p Cystoscopy with right retrograde uteteropyelogram Not Applicable Rico Cervantes, DO p Hysteroscopy D&C with myosure Not Applicable Lauren Regalado MD Indications: 69-year-old 3 para 3 with postmenopausal bleeding and a thickened, cystic, endometrial lining Surgeon: Lauren Regalado Anesthesia Type: General (LMA) Operative Notes Findings: 8 week size anteverted uterus Both fallopian tube ostia observed On the anterior and posterior meek of the uterus there were some cystic thickened areas Closure Type: not applicable Specimen(s): endometrial curettings Applied: none Estimated blood loss (mL): 3 Blood products transfused: none Procedure in detail: Informed consent was obtained. The patient was taken to the operating room by Dr. Cervantes for a urologic procedure. At the completion of his procedure, the patient was placed in the dorsal lithotomy position, and prepped and draped in the usual sterile fashion. A time-out was performed. A bivalve speculum was placed into the vagina and the anterior lip of the cervix was grasped with a single-tooth tenaculum. The cervical os was sequentially dilated to the # 8 Hegar dilator. The MyoSure hysteroscope passed easily into the endometrial cavity. Initial inspection showed both fallopian tube ostia. There were no polyps. There were thickened areas on the anterior and posterior meek of the uterus with cystic changes. Using the MyoSure Lite, those areas were resected. The hysteroscope was removed from the uterus. The single-tooth tenaculum was removed from the anterior lip of the cervix. The bivalve speculum was removed from the vagina. Sponge, lap, and instrument counts were correct x2. The patient tolerated the procedure well, and was taken to PACU in stable condition. Total fluid deficit: 75 cc Fluid volume collected: 1228 cc Final pressure: 100 mmHg Cutting time: 54 seconds Complications: none Post-operative Condition: stable Disposition: PACU Plan for aftercare: Home after recovery
[2024-11-01 08:35] VITALS: BP 132/62; PULSE 72; RESP 13; TEMP 36.2; O2SAT 96
[2024-11-01 08:39] VITALS: BP 121/58; PULSE 73; RESP 14; O2SAT 96
[2024-11-01 08:44] VITALS: BP 115/44; PULSE 68; RESP 10; O2SAT 96
[2024-11-01 08:50] VITALS: BP 129/69; PULSE 68; RESP 15; O2SAT 98
[2024-11-01 08:55] VITALS: BP 131/60; PULSE 70; RESP 14; O2SAT 98
== END 2024-11-01 09:18 | disposition home or self-care (01) ==
PROVIDERS: Obstetrics & Gynecology; PCP Internal Medicine; Referring Provider Urology; Visit Provider Urology
PROC: (CPT 52005; principal; 2024-11-01 07:45)
PROC: 0UDB8ZZ Extraction of Endometrium, Via Natural or Artificial Opening Endoscopic (ICD-10-PCS; CPT 58558; 2024-11-01 07:45)
DX: N95.0 Postmenopausal bleeding (principal); R93.89 Abnormal findings on diagnostic imaging of other specified body structures; R31.0 Gross hematuria; N13.30 Unspecified hydronephrosis
CPT/HCPCS: 58558; 52005; 74018; 76000; J0131; J0690; J1100; J1885; J2405; J2704; J3010

== ENCOUNTER → 2024-11-07 17:17 | Outpatient (CLI) | payer MEDICARE, SELFPAY ==
[2024-11-07 17:49] LABS: Add Manual Diff / Slide Review NO; Hematocrit 41.4 % (36-46); Hemoglobin 14.3 g/dL (12.0-16.0); Lymphocytes Absolute Auto 3300 /uL (1100-4500); Mean Corpuscular HGB Conc 34.6 % (30-36); Mean Corpuscular Hemoglobin 32.7 PG (26-34); Mean Corpuscular Volume 94.4 fL (80-100); Platelet Count 225 X10^3/uL (150-400)
[2024-11-07 18:17] LABS: Appearance Urine UA CLEAR; Bilirubin Urine UA NEGATIVE (NEGATIVE); Color Urine UA YELLOW; Glucose Urine UA NEGATIVE (Negative); Ketones Urine UA NEGATIVE (NEGATIVE); Leukocyte Esterase Urine UA 3+ (NEGATIVE); Nitrite Urine UA NEGATIVE (Negative); Occult Blood Urine UA 2+ (Negative); Protein Urine UA NEGATIVE (Negative); Specific Gravity Urine UA 1.010 (1.000-1.035); Urobilinogen Urine UA 0.2 E.U./dL (0.2)
[2024-11-07 18:24] LABS: pH Urine UA 6.0 (4.5-8.0)
[2024-11-07 18:47] LABS: Albumin 4.5 g/dL (3.5-5.0); Blood Urea Nitrogen 20 mg/dL (7-17); Estimated Glomerular Filt Rate > 60 mL/min (>60); HEMOLYSIS < 15 (0-50)
[2024-11-07 19:05] LABS: Culture Indicated Urine Specimen Cultured
[2024-11-07 22:06] LABS: Alanine Aminotransferase 21 IU/L (<35); Albumin Globulin Ratio 1.4 (1.0-2.8); Alkaline Phosphatase 71 U/L (38-126); Calcium 9.6 mg/dL (8.4-10.2); Carbon Dioxide 19 mmol/L (22-32); Chloride 107 mmol/L (98-107); Globulin 3.2 g/dL (1.7-4.1); Glucose 87 mg/dL (70-99); Potassium 4.4 mmol/L (3.4-5.1); Sodium 137 mmol/L (137-145); Total Protein 7.7 g/dL (6.3-8.2)
== END ==
PROVIDERS: PCP Internal Medicine; Referring Provider Internal Medicine; Visit Provider Internal Medicine
DX: R31.0 Gross hematuria (principal); N17.9 Acute kidney failure, unspecified; N39.0 Urinary tract infection, site not specified
CPT/HCPCS: 36415; 80053; 81001; 85025; 85651; 86038; 86140; 86160; 86162; 87086

== ENCOUNTER → 2024-11-12 09:46 | Outpatient (CLI) | payer MEDICARE, SELFPAY ==
[2024-11-12 10:38] LABS: Appearance Urine UA Cloudy; Color Urine UA Red
[2024-11-12 10:39] LABS: Specific Gravity Urine UA 1.015 (1.000-1.035); pH Urine UA 6.5 (4.5-8.0)
[2024-11-12 10:40] LABS: Bilirubin Urine UA Negative (NEGATIVE); Glucose Urine UA NEGATIVE (Negative); Ketones Urine UA NEGATIVE (NEGATIVE); Leukocyte Esterase Urine UA 3+ (NEGATIVE); Nitrite Urine UA NEGATIVE (Negative); Occult Blood Urine UA 3+ (Negative); Protein Urine UA 2+ (Negative); Urobilinogen Urine UA Normal E.U./dL (0.2)
[2024-11-12 10:42] LABS: Culture Indicated Urine Specimen Cultured
== END ==
PROVIDERS: PCP Internal Medicine; Referring Provider Internal Medicine; Visit Provider Internal Medicine
DX: N39.0 Urinary tract infection, site not specified (principal); R31.0 Gross hematuria
CPT/HCPCS: 81001; 87086

== ENCOUNTER → 2024-11-13 06:50 | Outpatient (CLI) | payer MEDICARE, SELFPAY ==
--- NOTE | 2024-11-13 06:51 | DI.CT.S_ITS ---
PROCEDURE: CT IVP A/P W/WO INDICATIONS: hematuria TECHNIQUE: Optional 5 mm thick noncontrast images acquired from the diaphragm to the symphysis pubis. After the administration of intravenous contrast, 5 mm thick images acquired from the diaphragm to the symphysis pubis after a 10-minute delay. 2 mm thick coronal and sagittal reformats were then performed of the kidneys and ureters. For radiation dose reduction, the following was used: automated exposure control, adjustment of mA and/or kV according to patient size. COMPARISON: None. FINDINGS: Image quality: Diagnostic. Kidneys and Ureters: Normal size kidneys with symmetric enhancement. No intrarenal calculi. There is a prominent right extrarenal pelvis. No ureteral calcifications or hydroureter. No renal mass. Very tiny cortical cysts present. Collecting systems are normally opacified. No urothelial thickening or enhancement. Bladder: Decompressed urinary bladder demonstrates normal wall thickness. No stones. No intraluminal masses. OTHER: Lower chest: Cardiomegaly. Mild posterior gravitational changes in the lungs. Liver: No solid mass. Gallbladder: No wall thickening or calcified stones. Biliary ducts: No biliary dilation. Pancreas: Normal size and morphology without visible ductal dilatation or inflammation. Spleen: Size is within normal limits. Adrenal Glands: No adrenal nodules. Stomach and Bowel: Stomach and small bowel loops are normal caliber. Diverticulosis of the descending colon. Redundant colon without suspicious wall thickening. Peritoneum: No abnormal intraperitoneal fluid. No free air. Ventral Wall: No hernia. Abdominal Nodes: No retroperitoneal or mesenteric adenopathy by size criteria. Vessels: The abdominal aorta, IVC, and portal vein are of normal caliber. PELVIS: Pelvic Organs: The anteverted uterus is enlarged for the patient's age and demonstrates innumerable tiny subendometrial cysts. Pelvic Nodes: No enlarged lymph nodes. Miscellaneous: No inguinal hernias are seen. Bones: No aggressive osseous abnormality. Disc degeneration L5-S1. IMPRESSION: No urinary tract calcifications or suspicious masses to explain hematuria. No evidence of urinary obstruction. Enlarged uterus with subendometrial cystic changes is suspicious for adenomyosis. Correlate clinically. Dictated by: Yasemin Ramirez M.D. on 11/13/2024 at 12:00 Approved by: Yasemin Ramirez M.D. on 11/13/2024 at 12:10
== END ==
LOC: CT 06:51
PROVIDERS: PCP Internal Medicine; Referring Provider Internal Medicine; Visit Provider Internal Medicine
DX: N85.2 Hypertrophy of uterus (principal); K57.30 Diverticulosis of large intestine without perforation or abscess without bleeding; I51.7 Cardiomegaly; N17.9 Acute kidney failure, unspecified; R31.0 Gross hematuria
CPT/HCPCS: 74178; Q9967

== ENCOUNTER → 2025-02-05 16:10 | Outpatient (CLI) | payer MEDICARE, SELFPAY ==
[2025-02-07 13:41] LABS: Trichomoas vaginalis Positive (Negative)
== END ==
PROVIDERS: PCP Internal Medicine; Visit Provider Obstetrics & Gynecology
DX: N89.8 Other specified noninflammatory disorders of vagina (principal)
CPT/HCPCS: 81514

== ENCOUNTER → 2025-02-14 12:32 | Outpatient (CLI) | payer MEDICARE, SELFPAY ==
[2025-02-14 15:01] LABS: Urine N gonorrhoeae NOT DETECTED
[2025-02-14 15:07] LABS: Urine Chlamydia NOT DETECTED
== END ==
PROVIDERS: PCP Internal Medicine; Referring Provider Obstetrics & Gynecology; Visit Provider Obstetrics & Gynecology
DX: N72 Inflammatory disease of cervix uteri (principal)
CPT/HCPCS: 87491; 87591